=== PATIENT | male | born 1985 | race Caucasian/White ===

== ENCOUNTER 2022-10-27 13:40 | Observation (INO) | payer MEDICARE, MEDICAID, SELFPAY ==
[2022-10-27] VITALS (7 sets, daily range): BP systolic 105–133; BP diastolic 73–90; PULSE 112–118; RESP 12–16; TEMP 36.3–36.8; O2SAT 93–95; BMI 28.0
--- NOTE | ~2022-10-27 | CT_ITS ---
EXAMINATION: CT brain wo con INDICATION: Facial numbness, history of traumatic brain injury COMPARISON: None TECHNIQUE: Standard unenhanced head CT. The dose-length product (DLP) was 681.00 mGy-cm. The mA was a djusted according to patient size. Iterative reconstruction technique was employed. FINDINGS: There is no intracranial hemorrhage, acute infarction, or abnormal mass lesion. There are l arge areas of encephalomalacia involving the left frontal lobe, the right frontal lobe, in the right temporal lobe. There is also mild encephalomalacia in the left cerebellum. The ventricles are normal. There is no abnormal mass effect or midline shift. The basal cisterns are patent. The orbits are nor mal. The paranasal sinuses, mastoids and calvarium are normal. IMPRESSION: 1. Areas of prior infarction without acute intracranial abnormality. Reviewed, dictated and finalized at location B. DESIGNER
--- NOTE | ~2022-10-27 | MR_ITS ---
EXAMINATION: MR cervical spine wo/w con DATE: 10/29/2022 17:01 INDICATION: Right upper extremity paresthesia TECHNIQUE: Magnetic resonance imaging (MRI) of the cervical spine was performed without and with 20 m L Multihance intravenous contrast. Sequences included sagittal T2-weighted FSE, sagittal T2-weighted FS FSE, sagittal T1-weighted FSE, axial T2-weighted FSE, and axial T1-weighted SE. Postcontrast seque nces included sagittal T1-weighted FS FSE, and axial T1-weighted FS SE. COMPARISON: None FINDINGS: Evaluation to definitely limited by some degree of motion artifact on all sequences. This affects danie shea the assessment of the facet and uncovertebral joints, neural foramina and cord signal. 10 degr ee cervicothoracic dextrocurvature. Sagittal alignment is normal. Vertebral body heights are normal. Bone marrow signal intensity is normal. Mild disc height loss at C4-C5. Disc bulges and/or uncovert ebral hypertrophic osteophytes which appear to result in some degree of neural foraminal stenosis on the left at C3-C4 and C4-C5 as well as mild central canal stenosis at C3-C4 and minimal at C4-C5. The re also appears to be mild neural foraminal stenosis resulting from facet osteoarthritis on the left at C6-C7 and bilaterally at C7-T1. No abnormally enhancing cord lesions identified. IMPRESSION: 1. Significantly limited evaluation due to motion artifact on all sequences which affects primarily t he assessment of the facet and uncovertebral joints, neural foramina and cord signal. Further assessm ent for neural from stenosis with recommend either repeat imaging when patient is able to remain more still or obtaining cervical spine CT 2. Mild cervical spondylosis with no evident abnormally enhancing cord lesions. Reviewed, dictated and finalized at location A. TOLOGY TECHNICIAN IMPRESSION: 1. Significantly limited evaluation due to motion artifact on all sequences whi ch affects primarily the assessment of the facet and uncovertebral joints, neur al foramina and cord signal. Further assessment for neural from stenosis with r ecommend either repeat imaging when patient is able to remain more still or obt aining cervical spine CT 2. Mild cervical spondylosis with no evident abnormally enhancing cord lesions.
--- NOTE | ~2022-10-27 | MR_ITS ---
EXAMINATION: MR thoracic spine wo/w con DATE: 10/29/2022 17:01 INDICATION: Right upper extremity and bilateral lower extremity weakness TECHNIQUE: Magnetic resonance imaging (MRI) of the thoracic spine was performed without and with 20 m L Multihance intravenous contrast. Sagittal localizer T1-weighted FSE of the cervicothoracic spine wa s obtained. Sequences included sagittal T2-weighted FSE, sagittal T2-weighted FS FSE, sagittal T1-fela ghted FSE and axial T1-weighted SE. Postcontrast sequences included axial T2-weighted FSE, sagittal T 1-weighted FS FSE, and axial T1-weighted FS SE. COMPARISON: None FINDINGS: There is motion artifact which mild to moderately limits assessment of the lower cervical and upper t horacic spine. 15 degree thoracic dextroscoliosis. Sagittal alignment is normal. Chronic endplate co mpression fractures with 10-20% vertebral body height loss centrally at T9 and at the right anterior aspect of T12, both with mild underlying fibrofatty degenerative endplate changes. Remaining vertebra l body heights heights are normal. T1 hyperintense hemangiomas at the left transverse process of T6. Marrow signal is otherwise unremarkable. Moderate disc height loss [id number] with left-sided predo minance atC2. ClassificationT5-T6, T6-T7 and T7-T8. Mild disc height loss at and T2-T3, T4-T5 and T9- T10. Right with left paracentral disc protrusion at T2-T3. Small right paracentral disc protrusion at T3-T4. Small left paracentral disc protrusion at T6-T7. Small central to left paracentral disc protr usion at T7-T8. Annular fissure and small left paracentral disc protrusion at T9-T10. These each appe ar to slightly flatten the immediately adjacent ventral surfaces of the cord but without significant central canal stenosis. Minimal diffuse disc bulge at T11-T12 without neural foraminal stenosis. No s ignificant facet osteoarthritis in the mid to lower thoracic spine. There is likely some facet osteoa rthritis at a few levels in the upper thoracic spine which may result in mild neural foraminal stenos is however assessment is limited by motion at these levels. There is normal spinal cord signal. No ab normally enhancing cord lesions. Small region of consolidation in the dependent bilateral lower lobes which could represent atelectasis or pneumonia. IMPRESSION: 1. 15 degrees thoracic dextro scoliosis with mild spondylosis. 2. There is motion affecting which mild to moderately limits assessment of the upper thoracic spine. Reviewed, dictated and finalized at location A. CONTROL FIELD REPRESENTATIVE
--- NOTE | ~2022-10-27 | MR_ITS ---
EXAMINATION: MR lumbar spine wo/w con DATE: 10/29/2022 17:01 INDICATION: Bilateral lower extremity weakness TECHNIQUE: Magnetic resonance imaging (MRI) of the lumbar spine was performed without and with 20 mL Multihance intravenous contrast. Sequences included sagittal T2-weighted FSE, sagittal T2-weighted FS FSE, and sagittal and axial T1-weighted FSE. Postcontrast sequences included axial T2-weighted FSE, sagittal T1-weighted FSE, and axial and sagittal T1-weighted FS FSE. COMPARISON: None FINDINGS: Alignment is normal. Minimal left anterior vertebral body height loss at T11 with mild underlying fib rofatty degenerative endplate changes. Remaining vertebral body heights are normal. T1 and T2 hyperin tense hemangiomas at L2 and S1. Otherwise normal marrow signal. Moderate disc height loss at T10-T11 with mild disc desiccation without significant disc height loss at L5-S1. The conus medullaris termin ates at L2. There is normal signal in the caudal spinal cord. No abnormally enhancing lesions identif ied. Paravertebral soft tissues are unremarkable. The following disc levels are specifically discusse d: T12: Disc is minimally bulging. There is mild bilateral facet osteoarthritis. There is no neural fora yenifer stenosis. There is no central canal stenosis. T12-L1: The disc does not extend beyond the endplate margin. There is mild right and minimal left fac et joint osteoarthritis. There is no neural foraminal stenosis. There is no central canal stenosis. L1-L2: The disc does not extend beyond the endplate margin. There is mild bilateral facet joint osteo arthritis. There is no neural foraminal stenosis. There is no central canal stenosis. L2-L3: The disc does not extend beyond the endplate margin. There is mild bilateral facet joint osteo arthritis. There is minimal bilateral neural foraminal stenosis. There is no central canal stenosis. L3-L4: The disc does not extend beyond the endplate margin. There is mild bilateral facet joint osteo arthritis. There is mild bilateral neural foraminal stenosis. There is no central canal stenosis. L4-L5: Disc is minimally bulging at the foraminal zones. There is mild left and mild to moderate righ t facet joint osteoarthritis. There is mild left and mild to moderate right neural foraminal stenosis . There is no central canal stenosis. L5-S1: Annular fissure and small left foraminal zone disc protrusion. There is mild right and minimal left facet joint osteoarthritis. There is mild bilateral neural foraminal stenosis. There is no cent ral canal stenosis. IMPRESSION: 1. Minimal to mild lumbar spondylosis. Reviewed, dictated and finalized at location A. LIARY OPERATOR
--- NOTE | ~2022-10-27 | CT_ITS ---
EXAMINATION: CT cervical spine wo con DATE: 11/01/2022 10:55 INDICATION: Numbness. Right upper extremity paresthesias. TECHNIQUE: Computed tomography (CT) of the cervical spine was performed without intravenous contrast. The dose-length product was 480 mGy-cm. Automated exposure control and iterative reconstruction tech nique were employed. COMPARISON: MRI dated 10/29/2022 FINDINGS: There is reversal of cervical lordosis. Vertebral body heights are maintained. Cranioverteb ral junction is normal. No evidence for perched facet. Odontoid process is normal. Lateral masses are normally aligned. There is mild uncinate degenerative change at C2-3 and C3-4. There is mild facet h ypertrophy at C4-5. Lung apices are normal. No acute fracture or traumatic malalignment. Mild levocur vature of the cervical spine. No significant paraspinal soft tissue abnormality. There is mild right neural foraminal narrowing at C6-7 and C7-T1 secondary to facet hypertrophy. No significant central c anal stenosis. No significant disc bulges or focal herniations are identified. IMPRESSION: 1. Mild cervical spondylosis with mild right neural foraminal narrowing at C6-7 and C7-T1. Reviewed, dictated and finalized at location A. TING TEACHER
--- NOTE | ~2022-10-27 | MR_ITS ---
EXAMINATION: MR brain/brain stem wo/w con DATE: 10/29/2022 17:01 INDICATION: Right upper extremity and and facial paresthesias and bilateral lower extremity venous. TECHNIQUE: Magnetic resonance imaging (MRI) of the brain and brainstem was performed without and with 20 mL Multihance intravenous contrast. Sequences included sagittal and axial T1-weighted SE, axial d iffusion-weighted FS SE, axial 3D SWAN, axial T2-weighted FLAIR, and axial T2-weighted FSE. Postcontr ast axial and coronal T1-weighted SE was obtained. Apparent diffusion coefficient (ADC) maps were cre ated. COMPARISON: Head CT dated 10/27/2022 FINDINGS: There are no areas of restricted diffusion to suggest acute infarction. No intracranial hemorrhage or abnormal intracranial mass lesion. Large regions of encephalomalacia along the inferior aspect of th e bilateral anterior frontal lobes, right temporal and anterior left temporal lobes with distribution favoring sequela of traumatic brain injury over infarct. There is associated ex vacuo dilation of th e temporal horn of the right lateral ventricle. There is asymmetric diffuse mild atrophy of the left cerebellar hemisphere relative to the right which could be related to diaschisis related to the previ ously noted regions of encephalomalacia. There are no intraparenchymal signal abnormalities seen on t he other pulse sequences. There are no abnormal extra-axial fluid collections. Flow voids are seen i n the cerebral arteries on the T2-weighted sequences consistent with their expected patency. Mild muc operiosteal thickening the left frontal and bilateral ethmoid sinuses. Visualized orbits and soft tis sues are unremarkable. There are no areas of abnormal enhancement on the post contrast images. IMPRESSION: 1. No acute intracranial process. 2. Large regions of encephalomalacia at the inferior bilateral anterior frontal lobes and the right t emporal lobe and anterior left temporal lobe with distribution favoring extremity brain injury over i nfarct. 3. 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 Reviewed, dictated and finalized at location A. F LIBRARIAN EXTENSION DEPARTMENT IMPRESSION: 1. No acute intracranial process. 2. Large regions of encephalomalacia at the inferior bilateral anterior frontal lobes and the right temporal lobe and anterior left temporal lobe with distrib ution favoring extremity brain injury over infarct. 3. 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
--- NOTE | ~2022-10-27 | XR_ITS ---
EXAMINATION: XR chest 1V portable DATE: 10/29/2022 13:02 INDICATION: Patent foramen ovale. TECHNIQUE: A single frontal view of the chest was obtained. COMPARISON: None. FINDINGS: The patient is rotated to his left. Calcified left lung nodules are consistent with old gra nulomatous disease. There is mild atelectasis bilaterally. No pleural effusion or pneumothorax. The h eart size is normal. Median sternotomy wires are noted. IMPRESSION: 1. Mild atelectasis bilaterally. Reviewed, dictated and finalized at location A. R PRESS OPERATOR
--- NOTE | 2022-10-27 14:02 | ED.GENADULT ---
HPI - General Adult General Chief complaint: Unspecified Stated complaint: R HAND NUMBNESS [id number] Time Seen by Provider: 10/27/22 14:00 History of Present Illness HPI narrative: 37-year-old male history of TBI, bacterial meningitis, spondylosis of the cervical lumbar spines presents to the emergency room for evaluation of diffuse facial numbness and tingling for 1 month and paresthesias in his right arm. Patient states that he chronically experiences paresthesias in his arms and his legs due to his spondylosis, but has noticed the paresthesia moving proximally up into his arm over the past couple of days. Patient presents from [facility] where he is in rehab due to frequent falls. States a month ago he began experiencing facial numbness and tingling and went to [facility], where he was found to have a urinary tract infection. He states since then he has developed increased weakness and was sent to [facility] for rehab to rebuild his strength. Patient reports chronic left sided weakness secondary to his bacterial meningitis. Related Data Allergies Allergy/AdvReac Type Severity Reaction Status Date / Time allopurinol Allergy Weakness Verified 10/27/22 15:54 Review of Systems Review of Systems: CONSTITUTIONAL: Denies fever, chills, or sweats. EYES: Denies visual changes, redness, or discharge. ENT: Denies rhinorrhea, congestion, sore throat, or otalgia. CARDIOVASCULAR: Denies chest pain, palpitations, or edema. RESPIRATORY: Denies cough or dyspnea. GASTROINTESTINAL: Denies abdominal pain, nausea, vomiting, or diarrhea. GENITOURINARY: Denies dysuria or hematuria. SKIN: Denies rash or itching. MUSCULOSKELETAL: Denies back pain, joint pain, or myalgia. NEUROLOGIC: Facial numbness, paresthesias to right arm PSYCHIATRIC: Denies anxiety or depression. Exam Narrative: GENERAL: Chronically ill-appearing, well-nourished, and in no acute distress. HEAD: Normocephalic, atraumatic. EYES: Conjunctivae normal, PERRLA and EOMI. CHEST: Clear to auscultation. No respiratory distress. No wheezes rales or rhonchi. HEART: Regular rate and rhythm. No murmur heard. Normal peripheral pulses. ABDOMEN: Soft, nontender, nondistended, normal active bowel sounds. BACK: No midline cervical/thoracic/lumbar tenderness EXTREMITIES: Normal range of motion. No edema. No clubbing or cyanosis SKIN: Warm, dry, no rash. No noted wounds NEURO: Left-sided weakness. Alert and oriented x3. MAEW. CN's II-XI intact bilaterally. Slurring of speech PSYCH: Cooperative. Normal mood and affect. Course Vital Signs Vital signs: Vital Signs Temperature 36.3 C L 10/27/22 13:41 Pulse Rate 113 H 10/27/22 13:41 Respiratory Rate 14 10/27/22 13:41 Blood Pressure 133/90 10/27/22 13:41 Pulse Oximetry 94 10/27/22 13:41 Temperature 36.3 C L 10/27/22 13:41 Pulse Rate 112 H 10/27/22 17:56 Respiratory Rate 12 10/27/22 17:56 Blood Pressure 107/74 10/27/22 17:56 Pulse Oximetry 95 10/27/22 17:56 Medical Decision Making Vital Signs Vital Signs: Vital Signs Temperature 36.3 C L 10/27/22 13:41 Pulse Rate 113 H 10/27/22 13:41 Respiratory Rate 14 10/27/22 13:41 Blood Pressure 133/90 10/27/22 13:41 Pulse Oximetry 94 10/27/22 13:41 Temperature 36.3 C L 10/27/22 13:41 Pulse Rate 112 H 10/27/22 17:56 Respiratory Rate 12 10/27/22 17:56 Blood Pressure 107/74 10/27/22 17:56 Pulse Oximetry 95 10/27/22 17:56 Lab Data 10/27/22 14:40 10/27/22 14:40 Labs: Lab Results 10/27/22 10/27/22 10/27/22 Range/Units 14:40 14:40 15:36 WBC 11.7 H (4.5-10.0) K/mm3 RBC 4.42 L (4.6-6.20) M/mm3 Hgb 15.8 (14.0-18.0) g/dL Hct 46.5 (42.0-52.0) % MCV 105.2 H (80-100) fl MCH 35.7 H (26-34) pg MCHC 34.0 (32-36) g/dl RDW 12.9 (11.5-14.5) % Plt Count 398 H (150-375) k/mm3 MPV 11.0 H (7.4-10.4) fl Immature Gran % (Auto) 0.4 (0-0.5) %
[2022-10-27 14:55] LABS: Basophils Absolute Auto 0.1 K/mm3 (0.0-0.1); Basophils Percent Auto 0.5 % (0.2-1.2); Eosinophils Absolute Auto 0.1 K/mm3 (0-0.3); Eosinophils Percent Auto 0.9 % (0-4.4); Hematocrit 46.5 % (42.0-52.0); Hemoglobin 15.8 g/dL (14.0-18.0); Immature Granulocyte Absolute 0.05 K/mm3 (0.00-0.031); Immature Granulocyte Percent A 0.4 % (0-0.5); Lymphocytes Absolute Auto 1.74 K/mm3 (0.9-3.2); Lymphocytes Percent Auto 14.9 % (18.3-44.2); Mean Corpuscular Hemoglobin 35.7 pg (26-34); Mean Corpuscular Volume 105.2 fl (80-100); Monocytes Absolute Auto 0.9 K/mm3 (0.1-0.6); Monocytes Percent Auto 7.3 % (2.6-8.5); Neutrophils Absolute Auto 8.9 K/mm3 (1.3-6.7); Platelet Count Result 398 k/mm3 (150-375); Red Blood Count 4.42 M/mm3 (4.6-6.20); Red Cell Distribution Width 12.9 % (11.5-14.5); White Blood Count 11.7 K/mm3 (4.5-10.0)
[2022-10-27 15:04] LABS: Chloride 100 mmol/L (98-107)
[2022-10-27 15:17] LABS: Alanine Aminotransferase 52 U/L (6-50); Albumin Level 3.9 g/dL (3.5-5.1); Alkaline Phosphatase 119 U/L (38-126); Anion Gap 6 mmol/L (8-16); Aspartate Amino Transferase 44 U/L (17-59); Bilirubin,Total 0.5 mg/dL (0.2-1.3); Blood Urea Nitrogen 18 mg/dL (9-20); Calcium 9.1 mg/dL (8.4-10.2); Carbon Dioxide 27 mmol/L (22-30); Estimated CRCL calculation 185 ml/min; Estimated Glomerular Filt Rate > 60; Glucose 119 mg/dL (65-110); Macrocytosis 1+ (NORMAL); Platelet Estimate Increased (Adequate); Potassium 4.5 mmol/L (3.4-5.0); Schistocytes None Seen (NORMAL); Sodium 133 mmol/L (137-145); Stomatocytes 1+ (NORMAL)
[2022-10-27 15:43] LABS: Appearance Urine Clear (Clear); Bilirubin Urine Negative (Negative); Blood Urine Negative (Negative); Color Urine Yellow (Yellow); Glucose Urine UA Negative (Negative); Ketones Urine Negative (Negative); Leukocyte Esterase Ur Negative LEU/UL (Negative); Nitrate Urine Negative (Negative); Protein Urine 2+ mg/dL (Negative); Specific Grav Ur 1.025 (1.001-1.035); Urobilinogen Urine 0.2 mg/dL (<2.0); pH Urine 5.5 (5.0-9.0)
[2022-10-27 15:56] LABS: Mucus Urine Rare /lpf; RBC Urine 0-2 /hpf (0-2); Squamous Epithelial Cell Urine Occasional /hpf (Few); WBC Urine 0-3 /hpf
[2022-10-27 16:00] LABS: Add Urine Microscopic? YES
--- NOTE | 2022-10-27 16:30 | PM.IMHP ---
H&P: HPI History of Present Illness Date/Time: 10/27/22 16:30 Chief Complaint: Numbness in the right arm and face. Narrative: This is a pleasant 37-year-old male with history of traumatic brain injury, bacterial meningitis, seizures, hypertension, GERD, anxiety, PTSD, and chronic pain who presented to the emergency department via EMS from [facility] for evaluation of numbness in the right arm and face. He has left-sided coordination deficits, reportedly stemming from bacterial meningitis in 2012, and he has occasional paresthesias and neuropathy symptoms in both legs which she attributes to spondylosis. In the last month or so he had developed paresthesias in the right hand which more recently has started to travel up the right arm and into the face. In fact he reports that his entire face and his tongue are numb and he has noticed that his speech has been slurred though his swallowing is intact. He was hospitalized at [facility] within the last month though he reports that he did not have any significant workup to evaluate the paresthesias. He was instead treated for urinary tract infection. He was discharged to [facility] for rehab due to increasing weakness. It is my understanding that he was referred to a neurologist but could not get in for 6 months and he came in today for evaluation. Blood pressure was stable on arrival. Brain CT showed large areas of encephalomalacia involving the left frontal lobe, right frontal lobe, and right temporal lobe and mild encephalomalacia in the left cerebellum without acute findings. Labs were significant for a WBC of 11.7, MCV 105.2, sodium 133. EKG showed sinus tachycardia which he states is not necessarily unusual for him. He is being admitted in this setting for further observation and neurology consultation. He denies vertigo, acute auditory and visual changes, facial droop, and difficulty swallowing. He has not had chest or pleuritic pain, palpitations, or shortness of breath. No fever, chills, sweats. No recent cold or flu symptoms. Review of Systems Review of Systems: Twelve systems were reviewed and are negative except for as per HPI. [facility] Past Medical History Medical History (Updated 10/27/22 @ 21:45 by Michelle Wolfe PA-C) Anxiety Bacterial meningitis (2012) Chronic pain syndrome Congenital heart disorder Gastroesophageal reflux disease Hypercholesterolemia Hypertension Posttraumatic stress disorder Seizure Traumatic brain injury (2004) Surgical History Surgical History (Updated 10/27/22 @ 21:41 by Michelle Wolfe PA-C) History of heart surgery Repair of hole in heart. History of tonsillectomy History of wisdom tooth extraction Family History Family History (Updated 10/27/22 @ 21:41 by Michelle Wolfe PA-C) Other Family history unknown Social History Social History (Updated 10/27/22 @ 21:42 by Michelle Wolfe PA-C) Social History: Surrogate decision maker: Patrick Mendoza, brother. Code status: Full code. Smoking status: Never smoker Alcohol intake: current Drinks per week: 1 Substance use: never Lack of Transportation: No Lack of Food: Never True Current Housing: I Have Housing Concerned About Future Housing: No Difficulty Paying Gas/Electric Bills: No Difficulty Paying for Meds: No Currently Unemployed: No Education: Decline to Answer Difficulty w/ Childcare or Family Care: No Additional living arrangements comments: The patient was living in his own apartment prior to his recent hospitalization. Currently at [facility] for rehab. Spiritual care concerns: No Meds Home Medications and Allergies Home Medications Medication Instructions Recorded Confirmed Type alprazolam 0.5 mg tablet 0.5 mg PO HS 10/27/22 10/27/22 History amlodipine 10 mg tablet 10 mg PO DAILY 10/27/22 10/27/22 History aspirin 81 mg chewable tablet 81 mg PO DAILY 10/27/22 10/27/22 History carvedilol 3.125 mg table
--- NOTE | 2022-10-27 16:50 | ECG_ITS ---
Measurements Intervals [place] Rate: 108 P: 42 CO: 153 QRS: 11 QRSD: 104 T: 58 QT: 332 QTc: 447 Interpretive Statements SINUS TACHYCARDIA POSSIBLE LEFT ATRIAL ENLARGEMENT INCOMPLETE RIGHT BUNDLE BRANCH BLOCK BASELINE ARTIFACT- I, III, AVR, AVL ABNORMAL ECG NO PREVIOUS ECG AVAILABLE FOR COMPARISON Electronically Signed On 10-27-2022 20:08:47 CHIEF METEOROLOGIST by Christopher Browning D.O.
[2022-10-27 16:56] LABS: Influenza A QL RT-PCR Negative (Negative); Influenza B QL RT-PCR Negative (Negative); SARS-CoV-2 RNA PCR Negative
[2022-10-27] MEDS: SODIUM CHLORIDE 0.9% IV 1,000 ML 999 ML IV CONT (17:29)
[2022-10-27] MEDS: HYDROmorphone HCL INJ (*CRX) 1 MG/ML SYR IV PUSH (17:29)
--- NOTE | 2022-10-27 18:11 | ADMGEN ---
This patient, Haile Mendoza, was admitted to [facility] S[facility] Room 324-02. Patient/family oriented to hospital policies and general routines including ID bracelet, bed and alarms, visiting hours, pain management, procedures, bathroom and other care routines, personal items, smoking policy, room service/diet, and visiting hours. Information on how to activate the Rapid Response Team has been discussed. Patient/Family are encouraged to report perceived risks to care and to ask questions if they do not understand what they are told or what they should do.
[2022-10-27] MEDS: SODIUM CHLORIDE 0.9% IV 1,000 ML 125 ML IV CONT (21:03)
--- NOTE | 2022-10-27 23:23 | PC.NURSE ---
pt inquiring about medication for HS informed CONY Wolfe to review and restart medication as appropriate.
--- NOTE | 2022-10-27 23:29 | PC.NURSE ---
medication started per CONY Wolfe
[2022-10-28] VITALS (8 sets, daily range): BP systolic 112–127; BP diastolic 77–88; PULSE 93–112; RESP 12–20; TEMP 36.1–36.3; O2SAT 95–97
[2022-10-28] MEDS: HYDROcodone/acetaminophen (*CRX) 5-325 MG TABLET 1 TAB PO ×3 (00:12→16:30)
[2022-10-28] MEDS: levETIRAcetam 500 MG TABLET 1000 MG PO ×3 (00:13→20:44)
[2022-10-28] MEDS: traZODone HCL 50 MG TABLET 100 MG PO ×2 (00:13→20:44)
[2022-10-28] MEDS: ALPRAZolam (*CRX) 0.5 MG TABLET PO ×2 (00:13→20:44)
[2022-10-28] MEDS: carvediloL 3.125 MG TABLET PO ×3 (00:13→20:44)
[2022-10-28] MEDS: GABAPENTIN 300 MG CAPSULE PO ×4 (00:14→17:43)
[2022-10-28] MEDS: SODIUM CHLORIDE 0.9% IV 1,000 ML 125 ML IV CONT ×4 (05:22→22:27)
[2022-10-28 06:24] LABS: Hematocrit 41.4 % (42.0-52.0); Hemoglobin 14.3 g/dL (14.0-18.0); Mean Corpuscular HGB Conc 34.5 g/dl (32-36); Mean Corpuscular Hemoglobin 35.5 pg (26-34); Mean Corpuscular Volume 102.7 fl (80-100); Mean Platelet Volume 10.8 fl (7.4-10.4); Platelet Count Result 266 k/mm3 (150-375); Red Blood Count 4.03 M/mm3 (4.6-6.20); Red Cell Distribution Width 12.7 % (11.5-14.5); White Blood Count 6.3 K/mm3 (4.5-10.0)
[2022-10-28 06:39] LABS: Alanine Aminotransferase 47 U/L (6-50); Albumin Level 3.5 g/dL (3.5-5.1); Alkaline Phosphatase 97 U/L (38-126); Anion Gap 6 mmol/L (8-16); Aspartate Amino Transferase 36 U/L (17-59); Bilirubin,Total 0.6 mg/dL (0.2-1.3); Blood Urea Nitrogen 13 mg/dL (9-20); Calcium 8.6 mg/dL (8.4-10.2); Carbon Dioxide 26 mmol/L (22-30); Chloride 105 mmol/L (98-107); Creatine Kinase 53 U/L (55-170); Estimated CRCL calculation 224 ml/min; Estimated Glomerular Filt Rate > 60; Glucose 93 mg/dL (65-110); Magnesium 1.9 mg/dL (1.6-2.3); Potassium 4.6 mmol/L (3.4-5.0); Sodium 137 mmol/L (137-145)
[2022-10-28 06:48] LABS: Iron 75 ug/dL (49-181)
[2022-10-28 06:58] LABS: Percent Iron Saturation 26 % (20-50)
[2022-10-28 07:39] LABS: Folic Acid 7.4 ng/mL (2.76->20)
[2022-10-28] MEDS: MAGNESIUM OXIDE 400 MG TABLET 800 MG PO ×2 (09:27→17:43)
[2022-10-28] MEDS: ASPIRIN 81 MG CHEWABLE TABLET PO (09:27)
[2022-10-28] MEDS: amLODIPine BESYLATE 5 MG TABLET 10 MG PO (09:27)
[2022-10-28] MEDS: PANTOPRAZOLE 40 MG TABLET PO (09:28)
[2022-10-28] MEDS: FOLIC ACID 1 MG TABLET PO (09:28)
[2022-10-28] MEDS: SERTRALINE HCL 50 MG TABLET 100 MG PO (09:28)
[2022-10-28] MEDS: ENALAPRIL MALEATE 10 MG TABLET 20 MG PO (09:28)
--- NOTE | 2022-10-28 10:00 | P.PNIM_ITS ---
Progress Note: A&P Assessment and Plan (1) Facial paresthesia: Code(s): R20.2 - Paresthesia of skin Status: Acute Assessment and Plan: * ongoing issue for upwards of a month * Attempted to make an appointment with neurologist however was unable to get in * Neuro consulted * MRI of brain and spine ordered * Echo ordered * Brain ct noted significant old findings. * Could be secondary to spinal defect (2) Paresthesia of right arm: Code(s): R20.2 - Paresthesia of skin Status: Acute Assessment and Plan: * See above (3) Slurred speech: Code(s): R47.81 - Slurred speech Status: Acute Assessment and Plan: * Seems to be stable * Probably related to tongue numbness * Awaiting MRI * CT head does show old findings (4) Elevated MCV: Code(s): R71.8 - Other abnormality of red blood cells Status: Acute Assessment and Plan: * Anemia labs stable * Continue to trend H/H * Current H/H 14.3/41.9 (5) Tachycardia: Code(s): R00.0 - Tachycardia, unspecified Status: Acute Assessment and Plan: * HR is in the low 100s * Continue to trend HR * Carvedilol continued * Most likely chronic (6) Hypertension: Code(s): I10 - Essential (primary) hypertension Status: Acute Assessment and Plan: * BP stable currently 121/84 * Continue home amlodipine, enalapril, carvedilol * Trend BP * Adjust therapy as indicated (7) Chronic pain syndrome: Code(s): G89.4 - Chronic pain syndrome Status: Acute Assessment and Plan: * Continue home pain [place] Q8H * Trend pain score * Adjust therapy as indicated (8) Anxiety: Code(s): F41.9 - Anxiety disorder, unspecified Status: Acute Assessment and Plan: * Stable * Continue home Xanax (9) Seizure: Code(s): R56.9 - Unspecified convulsions Status: Acute Assessment and Plan: * No reported recent siezures * Continue keppra 1000mg Q12H * Seizure precautions * Neuro on board * Adjust therapy as indicated Time Spent With Patient Time with patient: Greater than 35 minutes Subjective Date/time seen: 10/28/22 10:00 Interval history: 10/28/22 1000 patient is lying in bed. Patient stated that he still can not feel his face, tongue, nose, lips. He denies any current numbness to his upper extremities. He did state that he was able to eat. He is concerned about his speech is he stated that he feels like his tongue is very big and swollen however it is numb and he can not move it around well enough to annunciate his words. He denies any chest pain, shortness of breath, nausea, vomiting, diarrhea, constipation, weakness or fatigue. 10/27/22 16:30 This is a pleasant 37-year-old male with history of traumatic brain injury, bacterial meningitis, seizures, hypertension, GERD, anxiety, PTSD, and chronic pain who presented to the emergency department via EMS from [facility] for evaluation of numbness in the right arm and face. He has left-sided coordination deficits, reportedly stemming from bacterial meningitis in 2012, and he has occasional paresth
--- NOTE | 2022-10-28 10:00 | PM.IMPN ---
Progress Note: A&P Assessment and Plan (1) Facial paresthesia: Code(s): R20.2 - Paresthesia of skin Status: Acute Assessment and Plan: ongoing issue for upwards of a month Attempted to make an appointment with neurologist however was unable to get in Neuro consulted MRI of brain and spine ordered Echo ordered Brain ct noted significant old findings. Could be secondary to spinal defect (2) Paresthesia of right arm: Code(s): R20.2 - Paresthesia of skin Status: Acute Assessment and Plan: See above (3) Slurred speech: Code(s): R47.81 - Slurred speech Status: Acute Assessment and Plan: Seems to be stable Probably related to tongue numbness Awaiting MRI CT head does show old findings (4) Elevated MCV: Code(s): R71.8 - Other abnormality of red blood cells Status: Acute Assessment and Plan: Anemia labs stable Continue to trend H/H Current H/H 14.3/41.9 (5) Tachycardia: Code(s): R00.0 - Tachycardia, unspecified Status: Acute Assessment and Plan: HR is in the low 100s Continue to trend HR Carvedilol continued Most likely chronic (6) Hypertension: Code(s): I10 - Essential (primary) hypertension Status: Acute Assessment and Plan: BP stable currently 121/84 Continue home amlodipine, enalapril, carvedilol Trend BP Adjust therapy as indicated (7) Chronic pain syndrome: Code(s): G89.4 - Chronic pain syndrome Status: Acute Assessment and Plan: Continue home pain [place] Q8H Trend pain score Adjust therapy as indicated (8) Anxiety: Code(s): F41.9 - Anxiety disorder, unspecified Status: Acute Assessment and Plan: Stable Continue home Xanax (9) Seizure: Code(s): R56.9 - Unspecified convulsions Status: Acute Assessment and Plan: No reported recent siezures Continue keppra 1000mg Q12H Seizure precautions Neuro on board Adjust therapy as indicated Time Spent With Patient Time with patient: Greater than 35 minutes Subjective Date/time seen: 10/28/22 10:00 Interval history: 10/28/22 1000 patient is lying in bed. Patient stated that he still can not feel his face, tongue, nose, lips. He denies any current numbness to his upper extremities. He did state that he was able to eat. He is concerned about his speech is he stated that he feels like his tongue is very big and swollen however it is numb and he can not move it around well enough to annunciate his words. He denies any chest pain, shortness of breath, nausea, vomiting, diarrhea, constipation, weakness or fatigue. 10/27/22 16:30 This is a pleasant 37-year-old male with history of traumatic brain injury, bacterial meningitis, seizures, hypertension, GERD, anxiety, PTSD, and chronic pain who presented to the emergency department via EMS from [facility] for evaluation of numbness in the right arm and face. He has left-sided coordination deficits, reportedly stemming from bacterial meningitis in 2012, and he has occasional paresthesias and neuropathy symptoms in both legs which she attributes to spondylosis. In the last month or so he had developed paresthesias in the right hand which more recently has started to travel up the right arm and into the face. In fact he reports that his entire face and his tongue are numb and he has noticed that his speech has been slurred though his swallowing is intact. He was hospitalized at [facility] within the last month though he reports that he did not have any significant workup to evaluate the paresthesias.? He was instead treated for urinary tract infection. He was discharged to [facility] for rehab due to increasing weakness. It is my understanding that he was referred to a neur
--- NOTE | 2022-10-28 11:42 | WPDNEURCNPN ---
Assessment and Plan Assessment and plan (1) Slurred speech: Code(s): R47.81 - Slurred speech Status: Acute (2) Paresthesia of right arm: Code(s): R20.2 - Paresthesia of skin Status: Acute (3) Facial paresthesia: Code(s): R20.2 - Paresthesia of skin Status: Acute (4) Seizure: Code(s): R56.9 - Unspecified convulsions Status: Acute (5) Anxiety: Code(s): F41.9 - Anxiety disorder, unspecified Status: Acute Plan 1 facial paresthesia with paresthesia of right upper extremity 2 difficulties in speech with so-called dysarthria 3 chronic pain syndrome by history with anxiety and depression 4 posttraumatic seizure disorder. Considering his offices of the new onset of symptomatology and considering that as CT scan is abnormal MRI of the brain will be obtained in addition to MRI of cervical spine if any coincidental aggravated pathology has occurred. He will definitely benefit from the EMG and nerve conduction study of the upper and lower extremities for the long-term explanation, even though the history of new onset but he will not need spinal fluid studies until the MRI of the brain and cervical spines are obtained, is unlikely that he has Guillain-Valley syndrome Consult date: 10/28/22 HPI: Haile Mendoza is a 37 year old maleAdmitted to the hospital through the emergency room for the complaints of right-handed numbness of 4 weeks duration in addition to the history of traumatic brain injury, is spondylosis cervical and lumbar spines, patient reported to the ER personnel that he generally experiences paresthesia in his upper extremities and lower extremities because of the underlying spondylosis of the spine but recently the paresthesias have been moving proximally up into his upper extremity over the last couple of days he has been in the [facility] further rehab due to frequent helps and a month ago he was experiencing facial numbness and tingling for which he went to the [facility] was found to have only urinary tract infection but since then he has developed increasing weakness and was sent to the [facility] to the rehab. He is allergic to allopurinol. Initial evaluation in the emergency room revealed him to have normal vital signs, normal CBC and BMP, normal UA, and negative screening for the influenza AB and stars, EKG was negative for atrial fibrillation but with possible left atrial enlargement and incomplete right bundle branch block, patient does have ongoing history of chronic pain syndrome with GERD, hypercholesterolemia, hypertension, post traumatic stress disorder, traumatic brain injury, and seizure disorder, he is a never smoker, current alcohol intake only 1 drink per week, his medications included alprazolam 0.5 mg at night aspirin 81 mg daily carvedilol 3.125 mg twice a day gabapentin 300 mg 3 times a day hydrocodone 5 1 tablet every 8 hours levetiracetam 1000 mg q.12 hours sertraline 100 mg daily and trazodone 100 mg at night, Review of Systems Review of Systems: All systems reviewed & are unremarkable except as noted in HPI and below PMFSH Past Medical History Medical History (Updated 10/27/22 @ 21:45 by Michelle Wolfe PA-C) Anxiety Bacterial meningitis (2012) Chronic pain syndrome Congenital heart disorder Gastroesophageal reflux disease Hypercholesterolemia Hypertension Posttraumatic stress disorder Seizure Traumatic brain injury (2004) Surgical History Surgical History (Updated 10/27/22 @ 21:41 by Michelle Wolfe PA-C) History of heart surgery Repair of hole in heart. History of tonsillectomy History of wisdom tooth extraction Family History Family History (Updated 10/27/22 @ 21:41 by Michelle Wolfe PA-C) Other Family history unknown Social History Social History (Updated 10/27/22 @ 21:42 by Michelle Wolfe PA-C) Social History: Surrogate decision maker: Patrcik Mendoza, brother. Code status: Cori
--- NOTE | 2022-10-28 13:05 | PCSTNOTE ---
Bedside communication evaluation: Overall intelligibility is slightly reduced due to impaired lingual sensation and control. Conversational speech production intelligibility at approximately 90% to untrained listener with moderate background noise. Individual sound production upon imitation is within functional limits, but precision is reduced. In addition, glides (/r/, /w/ and /l/) are imprecise in monosyllabic words, and blends with these sounds are difficult for patient, requiring extra effort and repetition to achieve. Examples: farm pronounced as fam , swarm pronounced as shwarm , sleigh mispronounced with sl over simplified. Recommendation: speech therapy to address dysarthria. Thank you for the referral of this patient.
--- NOTE | 2022-10-28 21:50 | ECHO_ITS ---
Patient Info Name: Haile Mendoza Age: 37 years : 1985 Gender: Male Ht: 67 in Wt: 248 lbs BSA: 2.36 m2 HR: 86 bpm BP: 112 / 85 mmHg Technical Quality: Fair Exam Date: 10/28/2022 9:57 AM Exam Location: [facility] Patient Status: Outpatient Admit Date: 10/27/2022 Staff Ordering Physician: Michelle Wolfe PA-C [employer] Fitter: Bridger Olivier RDCS, RT Attending Provider: Michaela Whipple DO Referring Physician: Aiden CAZARES; Exam Type: CA echo doppler w bubble study Study Info Indications - Paresthesias - Hx of congenital heart defect I10 - Essential (primary) hypertension Complete two-dimensional, color flow and Doppler transthoracic echocardiogram is performed. Summary 1. Complete two-dimensional, color flow and Doppler transthoracic echocardiogram is performed. 2. Left ventricular chamber dimension is normal. 3. Left ventricular systolic function is normal, estimated at 55-60%. 4. The left ventricular diastolic function is grade I diastolic dysfunction. 5. E/e' 4 is not elevated. Left Ventricle E/e' 4 is not elevated. Left ventricular chamber dimension is normal. Left ventricular systolic function is normal, estimated at 55-60%. The left ventricular diastolic function is grade I diastolic dysfunction. Right Ventricle Right ventricular chamber dimension is normal. Right ventricular systolic function is normal. Left Atria Left atrial chamber dimension is normal. Right Atria Right atrial chamber dimension is normal. Atrial Septum Agitated saline injection with and without valsalva maneuver opacified right side cardiac chambers without shunt to left side cardiac chambers. Interatrial septum not well visualized by 2D and agitated saline imaging. Aortic Valve The aortic valve is trileaflet. There is no aortic valve stenosis. There is no aortic valve regurgitation. Pulmonic Valve There is no pulmonic regurgitation. Mitral Valve There is no mitral valve stenosis. There is no mitral valve regurgitation. Tricuspid Valve There is no tricuspid valve regurgitation. Pericardium/Pleural There is no pericardial effusion. Inferior Vena Cava Inferior vena cava is not well visualized. Aorta The aortic root size at the sinus of Valsalva is normal. Left Ventricular Outflow Tract Name Value Normal LVOT Doppler LVOT Peak Gradient 2 mmHg LVOT Mean Gradient 1 mmHg LVOT VTI 11 cm LVOT VTI/AV VTI Ratio 1.0 Mitral Valve Name Value Normal MV Doppler MV Decel [place] 316 cm/s2 MV PHT 44 ms MV Area (PHT) 5.0 cm2 4.0-5.0 MV Diastolic Function MV E Peak Velocity 48 cm/s MV A Peak Velocity 71 cm/s
[2022-10-29 06:33] LABS: Basophils Percent Auto 0.3 % (0.2-1.2); Eosinophils Percent Auto 0.7 % (0-4.4); Hematocrit 39.9 % (42.0-52.0); Hemoglobin 13.4 g/dL (14.0-18.0); Immature Granulocyte Absolute 0.02 K/mm3 (0.00-0.031); Immature Granulocyte Percent A 0.3 % (0-0.5); Lymphocytes Absolute Auto 1.31 K/mm3 (0.9-3.2); Lymphocytes Percent Auto 21.4 % (18.3-44.2); Mean Corpuscular HGB Conc 33.6 g/dl (32-36); Mean Corpuscular Hemoglobin 35.5 pg (26-34); Mean Corpuscular Volume 105.8 fl (80-100); Monocytes Absolute Auto 0.5 K/mm3 (0.1-0.6); Monocytes Percent Auto 8.2 % (2.6-8.5); Neutrophils Absolute Auto 4.2 K/mm3 (1.3-6.7); Neutrophils Percent Auto 69.1 % (45.5-73.1); Platelet Count Result 226 k/mm3 (150-375); Red Blood Count 3.77 M/mm3 (4.6-6.20); Red Cell Distribution Width 12.6 % (11.5-14.5); White Blood Count 6.1 K/mm3 (4.5-10.0)
[2022-10-29 06:45] VITALS: BP 113/85; PULSE 89; RESP 18; TEMP 36.3; O2SAT 96
[2022-10-29 06:57] LABS: Alanine Aminotransferase 49 U/L (6-50); Albumin Level 3.4 g/dL (3.5-5.1); Alkaline Phosphatase 92 U/L (38-126); Anion Gap 6 mmol/L (8-16); Aspartate Amino Transferase 49 U/L (17-59); Bilirubin,Total 0.7 mg/dL (0.2-1.3); Blood Urea Nitrogen 7 mg/dL (9-20); Calcium 8.7 mg/dL (8.4-10.2); Carbon Dioxide 24 mmol/L (22-30); Chloride 107 mmol/L (98-107); Estimated CRCL calculation 251 ml/min; Estimated Glomerular Filt Rate > 60; Glucose 90 mg/dL (65-110); Magnesium 1.8 mg/dL (1.6-2.3); Potassium 4.2 mmol/L (3.4-5.0); Sodium 137 mmol/L (137-145)
[2022-10-29 07:48] LABS: Macrocytosis 1+ (NORMAL); Platelet Estimate Adequate (Adequate); Schistocytes None Seen (NORMAL); Stomatocytes 1+ (NORMAL)
[2022-10-29] MEDS: MAGNESIUM SULF 2 GM/WATER 50ML 2 GM/50 ML BAG IVPB (08:08)
[2022-10-29] MEDS: GABAPENTIN 300 MG CAPSULE PO ×3 (08:09→17:10)
[2022-10-29] MEDS: SERTRALINE HCL 50 MG TABLET 100 MG PO (08:09)
[2022-10-29] MEDS: HYDROcodone/acetaminophen (*CRX) 5-325 MG TABLET 1 TAB PO ×2 (08:09→17:09)
[2022-10-29] MEDS: FOLIC ACID 1 MG TABLET PO (08:09)
[2022-10-29 08:10] VITALS: PULSE 88
[2022-10-29] MEDS: ASPIRIN 81 MG CHEWABLE TABLET PO (08:10)
[2022-10-29] MEDS: carvediloL 3.125 MG TABLET PO ×2 (08:10→21:21)
[2022-10-29] MEDS: MAGNESIUM OXIDE 400 MG TABLET 800 MG PO ×2 (08:10→17:10)
[2022-10-29] MEDS: ENALAPRIL MALEATE 10 MG TABLET 20 MG PO (08:10)
[2022-10-29] MEDS: PANTOPRAZOLE 40 MG TABLET PO (08:10)
[2022-10-29] MEDS: amLODIPine BESYLATE 5 MG TABLET 10 MG PO (08:10)
[2022-10-29] MEDS: levETIRAcetam 500 MG TABLET 1000 MG PO ×2 (08:10→21:21)
[2022-10-29] MEDS: ENOXAPARIN 40 MG/0.4 ML SYRINGE SUB-Q (10:12)
[2022-10-29] MEDS: LIDOCAINE 5% PATCH 1 PATCH TRANSDERM (11:36)
--- NOTE | 2022-10-29 11:45 | PM.IMPN ---
Progress Note: A&P Assessment and Plan (1) Facial paresthesia: Code(s): R20.2 - Paresthesia of skin Status: Acute Assessment and Plan: ongoing issue for upwards of a month Attempted to make an appointment with neurologist however was unable to get in due to long wait period Neuro consulted thank you for your help MRI of brain and spine ordered and pending, awaiting further information of the PFO Chest xray ordered to assess Echo EF of 55-60% with a grade [address] noted significant old findings. Could be secondary to spinal defect (2) Paresthesia of right arm: Code(s): R20.2 - Paresthesia of skin Status: Acute Assessment and Plan: See above (3) Slurred speech: Code(s): R47.81 - Slurred speech Status: Acute Assessment and Plan: Seems to be stable Probably related to tongue numbness Awaiting MRI at this time CT head does show old findings (4) Elevated MCV: Code(s): R71.8 - Other abnormality of red blood cells Status: Acute Assessment and Plan: Anemia labs stable Continue to trend H/H Current H/H 13.4/39.9 (5) Tachycardia: Code(s): R00.0 - Tachycardia, unspecified Status: Acute Assessment and Plan: HR is in the low 100s Continue to trend HR Carvedilol continued Most likely chronic (6) Hypertension: Code(s): I10 - Essential (primary) hypertension Status: Acute Assessment and Plan: BP stable currently 113/85 Continue home amlodipine, enalapril, carvedilol Trend BP Adjust therapy as indicated (7) Chronic pain syndrome: Code(s): G89.4 - Chronic pain syndrome Status: Acute Assessment and Plan: Continue home pain [place] Q8H Trend pain score Adjust therapy as indicated (8) Anxiety: Code(s): F41.9 - Anxiety disorder, unspecified Status: Acute Assessment and Plan: Stable Continue home Xanax (9) Seizure: Code(s): R56.9 - Unspecified convulsions Status: Acute Assessment and Plan: No reported recent siezures Continue keppra 1000mg Q12H Seizure precautions Neuro on board Adjust therapy as indicated Time Spent With Patient Time with patient: Greater than 35 minutes Subjective Date/time seen: 10/29/22 1145 Interval history: 10/29/22 1145 Patient stated that he is doing okay. Patient stated that his pain was pretty high today at a 9/10. He did request a lidocaine patch which has been ordered. Patient still has numbness in his face bilaterally nose, tongue. He did state that his arms are numb as well however he can moving they have equal strength. Sensation is equal bilaterally as well he can move his hands feet. He also response to pain. He denies any chest pain, shortness a breath, nausea, vomiting, diarrhea, constipation. 10/28/22 1000 patient is lying in bed. Patient stated that he still can not feel his face, tongue, nose, lips. He denies any current numbness to his upper extremities. He did state that he was able to eat. He is concerned about his speech is he stated that he feels like his tongue is very big and swollen however it is numb and he can not move it around well enough to annunciate his words. He denies any chest pain, shortness of breath, nausea, vomiting, diarrhea, constipation, weakness or fatigue. 10/27/22 16:30 This is a pleasant 37-year-old male with history of traumatic brain injury, bacterial meningitis, seizures, hypertension, GERD, anxiety, PTSD, and chronic pain who presented to the emergency department via EMS from [facility] for evaluation of numbness in the right arm and face. He has left-sided coordination deficits, reportedly stemming from bacterial meningitis in 2012, and he has occasional paresthesias and
--- NOTE | 2022-10-29 11:45 | P.PNIM_ITS ---
Progress Note: A&P Assessment and Plan (1) Facial paresthesia: Code(s): R20.2 - Paresthesia of skin Status: Acute Assessment and Plan: * ongoing issue for upwards of a month * Attempted to make an appointment with neurologist however was unable to get in due to long wait period * Neuro consulted thank you for your help * MRI of brain and spine ordered and pending, awaiting further information of the PFO * Chest xray ordered to assess * Echo EF of 55-60% with a grade 1 diastolic dysfunction * Brain ct noted significant old findings. * Could be secondary to spinal defect (2) Paresthesia of right arm: Code(s): R20.2 - Paresthesia of skin Status: Acute Assessment and Plan: * See above (3) Slurred speech: Code(s): R47.81 - Slurred speech Status: Acute Assessment and Plan: * Seems to be stable * Probably related to tongue numbness * Awaiting MRI at this time * CT head does show old findings (4) Elevated MCV: Code(s): R71.8 - Other abnormality of red blood cells Status: Acute Assessment and Plan: * Anemia labs stable * Continue to trend H/H * Current H/H 13.4/39.9 (5) Tachycardia: Code(s): R00.0 - Tachycardia, unspecified Status: Acute Assessment and Plan: * HR is in the low 100s * Continue to trend HR * Carvedilol continued * Most likely chronic (6) Hypertension: Code(s): I10 - Essential (primary) hypertension Status: Acute Assessment and Plan: * BP stable currently 113/85 * Continue home amlodipine, enalapril, carvedilol * Trend BP * Adjust therapy as indicated (7) Chronic pain syndrome: Code(s): G89.4 - Chronic pain syndrome Status: Acute Assessment and Plan: * Continue home pain [place] Q8H * Trend pain score * Adjust therapy as indicated (8) Anxiety: Code(s): F41.9 - Anxiety disorder, unspecified Status: Acute Assessment and Plan: * Stable * Continue home Xanax (9) Seizure: Code(s): R56.9 - Unspecified convulsions Status: Acute Assessment and Plan: * No reported recent siezures * Continue keppra 1000mg Q12H * Seizure precautions * Neuro on board * Adjust therapy as indicated Time Spent With Patient Time with patient: Greater than 35 minutes Subjective Date/time seen: 10/29/22 1145 Interval history: 10/29/22 1145 Patient stated that he is doing okay. Patient stated that his pain was pretty high today at a 9/10. He did request a lidocaine patch which has been ordered. Patient still has numbness in his face bilaterally nose, tongue. He did state that his arms are numb as well however he can moving they have equal strength. Sensation is equal bilaterally as well he can move his hands feet. He also response to pain. He denies any chest pain, shortness a breath, nausea, vomiting, diarrhea, constipation. 10/28/22 1000 patient is lying in bed. Patient stated that he still can not feel his face, tongue, nose, lips. He denies any current numbness to his upper extremities. He did state that he was able to eat. He is concerned abo
[2022-10-29 14:00] VITALS: BP 127/93; PULSE 96; RESP 16; TEMP 36.6; O2SAT 98
[2022-10-29 20:00] VITALS: O2SAT 97
[2022-10-29] MEDS: traZODone HCL 50 MG TABLET 100 MG PO (21:21)
[2022-10-29] MEDS: ALPRAZolam (*CRX) 0.5 MG TABLET PO (21:21)
[2022-10-29 21:51] VITALS: O2SAT 98
[2022-10-29 22:00] VITALS: BP 126/81; PULSE 94; RESP 18; TEMP 36.1; O2SAT 97
[2022-10-30] MEDS: SODIUM CHLORIDE 0.9% IV 1,000 ML 125 ML IV CONT ×2 (02:12→09:14)
[2022-10-30 06:00] VITALS: BP 124/93; PULSE 94; RESP 19; TEMP 36; O2SAT 94
[2022-10-30] MEDS: HYDROcodone/acetaminophen (*CRX) 5-325 MG TABLET 1 TAB PO ×2 (06:26→14:39)
[2022-10-30 06:40] LABS: Basophils Percent Auto 0.3 % (0.2-1.2); Eosinophils Absolute Auto 0.1 K/mm3 (0-0.3); Eosinophils Percent Auto 0.8 % (0-4.4); Hemoglobin 13.2 g/dL (14.0-18.0); Immature Granulocyte Absolute 0.02 K/mm3 (0.00-0.031); Immature Granulocyte Percent A 0.3 % (0-0.5); Lymphocytes Absolute Auto 1.42 K/mm3 (0.9-3.2); Lymphocytes Percent Auto 22.9 % (18.3-44.2); Mean Corpuscular HGB Conc 33.8 g/dl (32-36); Mean Corpuscular Hemoglobin 35.3 pg (26-34); Mean Corpuscular Volume 104.3 fl (80-100); Mean Platelet Volume 10.7 fl (7.4-10.4); Monocytes Absolute Auto 0.5 K/mm3 (0.1-0.6); Monocytes Percent Auto 7.9 % (2.6-8.5); Neutrophils Absolute Auto 4.2 K/mm3 (1.3-6.7); Neutrophils Percent Auto 67.8 % (45.5-73.1); Platelet Count Result 209 k/mm3 (150-375); Red Blood Count 3.74 M/mm3 (4.6-6.20); Red Cell Distribution Width 12.5 % (11.5-14.5); White Blood Count 6.2 K/mm3 (4.5-10.0)
[2022-10-30 06:46] LABS: Chloride 102 mmol/L (98-107)
[2022-10-30 06:51] LABS: Alanine Aminotransferase 49 U/L (6-50); Albumin Level 3.5 g/dL (3.5-5.1); Alkaline Phosphatase 87 U/L (38-126); Anion Gap 5 mmol/L (8-16); Aspartate Amino Transferase 50 U/L (17-59); Bilirubin,Total 0.6 mg/dL (0.2-1.3); Blood Urea Nitrogen 6 mg/dL (9-20); Calcium 8.7 mg/dL (8.4-10.2); Carbon Dioxide 25 mmol/L (22-30); Estimated CRCL calculation 251 ml/min; Estimated Glomerular Filt Rate > 60; Glucose 83 mg/dL (65-110); Magnesium 1.8 mg/dL (1.6-2.3); Potassium 4.1 mmol/L (3.4-5.0); Sodium 132 mmol/L (137-145)
[2022-10-30] MEDS: SERTRALINE HCL 50 MG TABLET 100 MG PO (09:12)
[2022-10-30] MEDS: ENOXAPARIN 40 MG/0.4 ML SYRINGE SUB-Q (09:12)
[2022-10-30] MEDS: LIDOCAINE 5% PATCH 1 PATCH TRANSDERM (09:12)
[2022-10-30] MEDS: levETIRAcetam 500 MG TABLET 1000 MG PO ×2 (09:13→21:55)
[2022-10-30] MEDS: FOLIC ACID 1 MG TABLET PO (09:13)
[2022-10-30] MEDS: MAGNESIUM OXIDE 400 MG TABLET 800 MG PO ×2 (09:13→17:32)
[2022-10-30] MEDS: PANTOPRAZOLE 40 MG TABLET PO (09:13)
[2022-10-30] MEDS: carvediloL 3.125 MG TABLET PO ×2 (09:13→21:55)
[2022-10-30] MEDS: amLODIPine BESYLATE 5 MG TABLET 10 MG PO (09:13)
[2022-10-30] MEDS: GABAPENTIN 300 MG CAPSULE PO ×3 (09:13→17:33)
[2022-10-30] MEDS: ASPIRIN 81 MG CHEWABLE TABLET PO (09:13)
[2022-10-30] MEDS: ENALAPRIL MALEATE 10 MG TABLET 20 MG PO (09:13)
--- NOTE | 2022-10-30 10:45 | PM.IMPN ---
Progress Note: A&P Assessment and Plan (1) Facial paresthesia: Code(s): R20.2 - Paresthesia of skin Status: Acute Assessment and Plan: ongoing issue for upwards of a month Attempted to make an appointment with neurologist however was unable to get in due to long wait period Neuro consulted thank you for your help MRI of brain showed No acute intracranial process, Large regions of encephalomalacia at the inferior bilateral anterior frontal lobes and the right temporal lobe and anterior left temporal lobe with distribution favoring extremity brain injury over infarct. 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 MRI of the spine still pending read Chest xray ordered to assess Echo EF of 55-60% with a grade [address] noted significant old findings. Could be secondary to spinal defect (2) Paresthesia of right arm: Code(s): R20.2 - Paresthesia of skin Status: Acute Assessment and Plan: See above (3) Slurred speech: Code(s): R47.81 - Slurred speech Status: Acute Assessment and Plan: Seems to be stable Probably related to tongue numbness Brain MRI see report CT head does show old findings (4) Elevated MCV: Code(s): R71.8 - Other abnormality of red blood cells Status: Acute Assessment and Plan: Anemia labs stable Continue to trend H/H Current H/H 13.2/39.0 (5) Tachycardia: Code(s): R00.0 - Tachycardia, unspecified Status: Acute Assessment and Plan: HR is in the low 100s Continue to trend HR Carvedilol continued Most likely chronic (6) Hypertension: Code(s): I10 - Essential (primary) hypertension Status: Acute Assessment and Plan: BP stable currently 124/93 Continue home amlodipine, enalapril, carvedilol Trend BP Adjust therapy as indicated (7) Chronic pain syndrome: Code(s): G89.4 - Chronic pain syndrome Status: Acute Assessment and Plan: Continue home pain [place] Q8H Trend pain score Adjust therapy as indicated (8) Anxiety: Code(s): F41.9 - Anxiety disorder, unspecified Status: Acute Assessment and Plan: Stable Continue home Xanax (9) Seizure: Code(s): R56.9 - Unspecified convulsions Status: Acute Assessment and Plan: No reported recent siezures Continue keppra 1000mg Q12H Seizure precautions Neuro on board Adjust therapy as indicated Time Spent With Patient Time with patient: Greater than 35 minutes Subjective Date/time seen: 10/30/22 1045 Interval history: 10/30/22 104 Patient stated he is doing about the same. Patient stated he woke this morning his pain was pretty extreme however he got a pain medicine and it was better. He currently denies any chest pain, shortness a breath, nausea, vomiting, diarrhea, constipation, weakness or fatigue. MRIs are complete, however the spinal MRIs are still not read. 10/29/22 1145 Patient stated that he is doing okay. Patient stated that his pain was pretty high today at a 9/10. He did request a lidocaine patch which has been ordered. Patient still has numbness in his face bilaterally nose, tongue. He did state that his arms are numb as well however he can moving they have equal strength. Sensation is equal bilaterally as well he can move his hands feet. He also response to pain. He denies any chest pain, shortness a breath, nausea, vomiting, diarrhea, constipation. 10/28/22 1000 patient is lying in bed. Patient stated that he still can not feel his face, tongue, nose, lips. He denies any current numbness to his upper extremities. He did state that he was able to eat. He is concerned about his speech
--- NOTE | 2022-10-30 10:45 | P.PNIM_ITS ---
Progress Note: A&P Assessment and Plan (1) Facial paresthesia: Code(s): R20.2 - Paresthesia of skin Status: Acute Assessment and Plan: * ongoing issue for upwards of a month * Attempted to make an appointment with neurologist however was unable to get in due to long wait period * Neuro consulted thank you for your help * MRI of brain showed No acute intracranial process, Large regions of encephalomalacia at the inferior bilateral anterior frontal lobes and the right temporal lobe and anterior left temporal lobe with distribution favoring extremity brain injury over infarct. 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 * MRI of the spine still pending read * Chest xray ordered to assess * Echo EF of 55-60% with a grade 1 diastolic dysfunction * Brain ct noted significant old findings. * Could be secondary to spinal defect (2) Paresthesia of right arm: Code(s): R20.2 - Paresthesia of skin Status: Acute Assessment and Plan: * See above (3) Slurred speech: Code(s): R47.81 - Slurred speech Status: Acute Assessment and Plan: * Seems to be stable * Probably related to tongue numbness * Brain MRI see report * CT head does show old findings (4) Elevated MCV: Code(s): R71.8 - Other abnormality of red blood cells Status: Acute Assessment and Plan: * Anemia labs stable * Continue to trend H/H * Current H/H 13.2/39.0 (5) Tachycardia: Code(s): R00.0 - Tachycardia, unspecified Status: Acute Assessment and Plan: * HR is in the low 100s * Continue to trend HR * Carvedilol continued * Most likely chronic (6) Hypertension: Code(s): I10 - Essential (primary) hypertension Status: Acute Assessment and Plan: * BP stable currently 124/93 * Continue home amlodipine, enalapril, carvedilol * Trend BP * Adjust therapy as indicated (7) Chronic pain syndrome: Code(s): G89.4 - Chronic pain syndrome Status: Acute Assessment and Plan: * Continue home pain [place] Q8H * Trend pain score * Adjust therapy as indicated (8) Anxiety: Code(s): F41.9 - Anxiety disorder, unspecified Status: Acute Assessment and Plan: * Stable * Continue home Xanax (9) Seizure: Code(s): R56.9 - Unspecified convulsions Status: Acute Assessment and Plan: * No reported recent siezures * Continue keppra 1000mg Q12H * Seizure precautions * Neuro on board * Adjust therapy as indicated Time Spent With Patient Time with patient: Greater than 35 minutes Subjective Date/time seen: 10/30/22 1045 Interval history: 10/30/22 104 Patient stated he is doing about the same. Patient stated he woke this morning his pain was pretty extreme however he got a pain medicine and it was better. He currently denies any chest pain, shortness a breath, nausea, vomiting, diarrhea, constipation, weakness or fatigue. MRIs are complete, however the spinal MRIs are still not read. 10/29/22 1145 Patient stated that
[2022-10-30 14:00] VITALS: BP 131/81; PULSE 78; RESP 14; TEMP 36.5; O2SAT 95
[2022-10-30 14:30] VITALS: BMI 10.0
--- NOTE | 2022-10-30 14:47 | PCPTNOTE ---
Pt chart reviewed, spoke with nursing and pt currently appears to be at baseline mobility [place]. [facility] a [facility], is a poor historian as he believes he still lives in an apartment independently. Requested pt sit EOB to take meds with nursing to which he declined to perform at this time. Will reattempt therapy at a later time.
[2022-10-30 21:26] VITALS: BP 131/89; PULSE 98; RESP 18; TEMP 36.6; O2SAT 94
[2022-10-30 21:55] VITALS: PULSE 98
[2022-10-30] MEDS: ALPRAZolam (*CRX) 0.5 MG TABLET PO (21:55)
[2022-10-30] MEDS: traZODone HCL 50 MG TABLET 100 MG PO (21:55)
[2022-10-31 06:00] VITALS: BP 137/94; PULSE 88; RESP 18; TEMP 36.3; O2SAT 96
[2022-10-31 06:53] LABS: Basophils Percent Auto 0.3 % (0.2-1.2); Eosinophils Percent Auto 0.7 % (0-4.4); Hematocrit 38.3 % (42.0-52.0); Immature Granulocyte Absolute 0.02 K/mm3 (0.00-0.031); Immature Granulocyte Percent A 0.3 % (0-0.5); Lymphocytes Absolute Auto 1.24 K/mm3 (0.9-3.2); Lymphocytes Percent Auto 20.3 % (18.3-44.2); Mean Corpuscular HGB Conc 33.9 g/dl (32-36); Mean Corpuscular Volume 103.2 fl (80-100); Mean Platelet Volume 10.7 fl (7.4-10.4); Monocytes Absolute Auto 0.5 K/mm3 (0.1-0.6); Monocytes Percent Auto 8.4 % (2.6-8.5); Neutrophils Absolute Auto 4.3 K/mm3 (1.3-6.7); Platelet Count Result 183 k/mm3 (150-375); Red Blood Count 3.71 M/mm3 (4.6-6.20); Red Cell Distribution Width 12.3 % (11.5-14.5); White Blood Count 6.1 K/mm3 (4.5-10.0)
[2022-10-31 07:00] LABS: Alanine Aminotransferase 53 U/L (6-50); Albumin Level 3.5 g/dL (3.5-5.1); Alkaline Phosphatase 86 U/L (38-126); Anion Gap 9 mmol/L (8-16); Aspartate Amino Transferase 52 U/L (17-59); Bilirubin,Total 0.8 mg/dL (0.2-1.3); Blood Urea Nitrogen 5 mg/dL (9-20); Calcium 8.7 mg/dL (8.4-10.2); Carbon Dioxide 25 mmol/L (22-30); Chloride 103 mmol/L (98-107); Estimated CRCL calculation 251 ml/min; Estimated Glomerular Filt Rate > 60; Glucose 83 mg/dL (65-110); Magnesium 1.6 mg/dL (1.6-2.3); Potassium 3.8 mmol/L (3.4-5.0); Sodium 137 mmol/L (137-145)
--- NOTE | 2022-10-31 09:15 | P.PNIM_ITS ---
Progress Note: A&P Assessment and Plan (1) Facial paresthesia: Code(s): R20.2 - Paresthesia of skin Status: Acute Assessment and Plan: * ongoing issue for upwards of a month * Attempted to make an appointment with neurologist however was unable to get in due to long wait period * Neuro consulted thank you for your help * MRI of brain showed No acute intracranial process, Large regions of encephalomalacia at the inferior bilateral anterior frontal lobes and the right temporal lobe and anterior left temporal lobe with distribution favoring extremity brain injury over infarct. 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 * MRI of the spine shows mainly spondolysis, cervical spine came back inconcl usive due to motion artifact. * CT of the cervical spinal ordered * Echo EF of 55-60% with a grade 1 diastolic dysfunction * Brain ct noted significant old findings. * Could be secondary to spinal defect (2) Paresthesia of right arm: Code(s): R20.2 - Paresthesia of skin Status: Acute Assessment and Plan: * See above (3) Slurred speech: Code(s): R47.81 - Slurred speech Status: Acute Assessment and Plan: * Seems to be stable * Probably related to tongue numbness * Brain MRI see report * CT head does show old findings (4) Elevated MCV: Code(s): R71.8 - Other abnormality of red blood cells Status: Acute Assessment and Plan: * Anemia labs stable * Continue to trend H/H * Current H/H 13.0/38.3 (5) Tachycardia: Code(s): R00.0 - Tachycardia, unspecified Status: Acute Assessment and Plan: * HR is in the low 100s * Continue to trend HR * Carvedilol continued * Most likely chronic (6) Hypertension: Code(s): I10 - Essential (primary) hypertension Status: Acute Assessment and Plan: * BP stable currently 137/94 * Continue home amlodipine, enalapril, carvedilol * Trend BP * Adjust therapy as indicated (7) Chronic pain syndrome: Code(s): G89.4 - Chronic pain syndrome Status: Acute Assessment and Plan: * Continue home pain [place] Q8H * Trend pain score * Adjust therapy as indicated (8) Anxiety: Code(s): F41.9 - Anxiety disorder, unspecified Status: Acute Assessment and Plan: * Stable * Continue home Xanax (9) Seizure: Code(s): R56.9 - Unspecified convulsions Status: Acute Assessment and Plan: * No reported recent siezures * Continue keppra 1000mg Q12H * Seizure precautions * Neuro on board * Adjust therapy as indicated Time Spent With Patient Time with patient: Greater than 35 minutes Subjective Date/time seen: 10/31/22914 Interval history: 10/31/22914 Patient is not too happy today. Talked to him about standing, and he fears that he will be dropped. He also did try to do some therapy yesterday but was started to have some muscle spasms. Cervical MRI was read as incomplete due to motion artifact. CT was ordered, awaiting completion. 10/30/22 [id number]
--- NOTE | 2022-10-31 09:15 | PM.IMPN ---
Progress Note: A&P Assessment and Plan (1) Facial paresthesia: Code(s): R20.2 - Paresthesia of skin Status: Acute Assessment and Plan: ongoing issue for upwards of a month Attempted to make an appointment with neurologist however was unable to get in due to long wait period Neuro consulted thank you for your help MRI of brain showed No acute intracranial process, Large regions of encephalomalacia at the inferior bilateral anterior frontal lobes and the right temporal lobe and anterior left temporal lobe with distribution favoring extremity brain injury over infarct. 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 MRI of the spine shows mainly spondolysis, cervical spine came back inconclusive due to motion artifact. CT of the cervical spinal ordered Echo EF of 55-60% with a grade [address] noted significant old findings. Could be secondary to spinal defect (2) Paresthesia of right arm: Code(s): R20.2 - Paresthesia of skin Status: Acute Assessment and Plan: See above (3) Slurred speech: Code(s): R47.81 - Slurred speech Status: Acute Assessment and Plan: Seems to be stable Probably related to tongue numbness Brain MRI see report CT head does show old findings (4) Elevated MCV: Code(s): R71.8 - Other abnormality of red blood cells Status: Acute Assessment and Plan: Anemia labs stable Continue to trend H/H Current H/H 13.0/38.3 (5) Tachycardia: Code(s): R00.0 - Tachycardia, unspecified Status: Acute Assessment and Plan: HR is in the low 100s Continue to trend HR Carvedilol continued Most likely chronic (6) Hypertension: Code(s): I10 - Essential (primary) hypertension Status: Acute Assessment and Plan: BP stable currently 137/94 Continue home amlodipine, enalapril, carvedilol Trend BP Adjust therapy as indicated (7) Chronic pain syndrome: Code(s): G89.4 - Chronic pain syndrome Status: Acute Assessment and Plan: Continue home pain [place] Q8H Trend pain score Adjust therapy as indicated (8) Anxiety: Code(s): F41.9 - Anxiety disorder, unspecified Status: Acute Assessment and Plan: Stable Continue home Xanax (9) Seizure: Code(s): R56.9 - Unspecified convulsions Status: Acute Assessment and Plan: No reported recent siezures Continue keppra 1000mg Q12H Seizure precautions Neuro on board Adjust therapy as indicated Time Spent With Patient Time with patient: Greater than 35 minutes Subjective Date/time seen: 10/31/22914 Interval history: 10/31/22914 Patient is not too happy today. Talked to him about standing, and he fears that he will be dropped. He also did try to do some therapy yesterday but was started to have some muscle spasms. Cervical MRI was read as incomplete due to motion artifact. CT was ordered, awaiting completion. 10/30/22 1045 Patient stated he is doing about the same. Patient stated he woke this morning his pain was pretty extreme however he got a pain medicine and it was better. He currently denies any chest pain, shortness a breath, nausea, vomiting, diarrhea, constipation, weakness or fatigue. MRIs are complete, however the spinal MRIs are still not read. 10/29/22 1145 Patient stated that he is doing okay. Patient stated that his pain was pretty high today at a 9/10. He did request a lidocaine patch which has been ordered. Patient still has numbness in his face bilaterally nose, tongue. He did state that his arms are numb as well however he can moving they have equal strength. Sensation is equal bilaterally as well he can mo
[2022-10-31] MEDS: ASPIRIN 81 MG CHEWABLE TABLET PO (09:26)
[2022-10-31 09:27] VITALS: PULSE 72
[2022-10-31] MEDS: carvediloL 3.125 MG TABLET PO ×2 (09:27→21:09)
[2022-10-31] MEDS: FOLIC ACID 1 MG TABLET PO (09:28)
[2022-10-31] MEDS: ENOXAPARIN 40 MG/0.4 ML SYRINGE SUB-Q (09:28)
[2022-10-31] MEDS: ENALAPRIL MALEATE 10 MG TABLET 20 MG PO (09:28)
[2022-10-31] MEDS: GABAPENTIN 300 MG CAPSULE PO ×3 (09:29→16:32)
[2022-10-31] MEDS: LIDOCAINE 5% PATCH 1 PATCH TRANSDERM (09:29)
[2022-10-31] MEDS: levETIRAcetam 500 MG TABLET 1000 MG PO ×2 (09:29→21:09)
[2022-10-31] MEDS: MAGNESIUM OXIDE 400 MG TABLET 800 MG PO ×2 (09:30→16:32)
[2022-10-31] MEDS: SERTRALINE HCL 50 MG TABLET 100 MG PO (09:30)
[2022-10-31] MEDS: PANTOPRAZOLE 40 MG TABLET PO (09:30)
[2022-10-31] MEDS: HYDROcodone/acetaminophen (*CRX) 5-325 MG TABLET 1 TAB PO ×2 (09:31→21:14)
[2022-10-31] MEDS: amLODIPine BESYLATE 5 MG TABLET 10 MG PO (09:33)
--- NOTE | 2022-10-31 11:23 | PCPTNOTE ---
Unable to complete evaluation at this time per nursing d/t psychosocial issues. Will reattempt PT evaluation as able.
[2022-10-31] MEDS: MAGNESIUM SULF 4 GM/WATER100ML 4 GM/100 ML BAG IVPB (13:17)
[2022-10-31 14:00] VITALS: BP 124/85; PULSE 93; RESP 14; TEMP 36.5; O2SAT 96
[2022-10-31] MEDS: HYDROmorphone HCL INJ (*CRX) 1 MG/ML SYR 0.5 MG IV PUSH (14:36)
[2022-10-31 15:39] VITALS: BMI 10.0
[2022-10-31 21:09] VITALS: PULSE 97
[2022-10-31] MEDS: ALPRAZolam (*CRX) 0.5 MG TABLET PO (21:09)
[2022-10-31] MEDS: traZODone HCL 50 MG TABLET 100 MG PO (21:09)
[2022-10-31 21:37] VITALS: BP 129/90; PULSE 97; RESP 18; TEMP 36.5; O2SAT 94
[2022-11-01 05:20] VITALS: BP 130/88; PULSE 90; RESP 18; TEMP 36.7; O2SAT 98
[2022-11-01] MEDS: LIDOCAINE 5% PATCH 1 PATCH TRANSDERM (08:45)
--- NOTE | 2022-11-01 08:45 | P.PNIM_ITS ---
Progress Note: A&P Assessment and Plan (1) Facial paresthesia: Code(s): R20.2 - Paresthesia of skin Status: Acute Assessment and Plan: * ongoing issue for upwards of a month * Attempted to make an appointment with neurologist however was unable to get in due to long wait period * Neuro consulted thank you for your help * MRI of brain showed No acute intracranial process, Large regions of encephalomalacia at the inferior bilateral anterior frontal lobes and the right temporal lobe and anterior left temporal lobe with distribution favoring extremity brain injury over infarct. 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 * MRI of the spine shows mainly spondylolysis, cervical spine came back incon clusive due to motion artifact. * CT of the cervical spinal showed mild spondylosis, with mild right neural foraminal narrowing at C6-7, and C7-T1 * Echo EF of 55-60% with a grade 1 diastolic dysfunction * Brain ct noted significant old findings. * Could be secondary to spinal defect * Consulted Neurosurgery (2) Paresthesia of right arm: Code(s): R20.2 - Paresthesia of skin Status: Acute Assessment and Plan: * See above (3) Slurred speech: Code(s): R47.81 - Slurred speech Status: Acute Assessment and Plan: * Seems to be stable * Probably related to tongue numbness * Brain MRI see report * CT head does show old findings (4) Elevated MCV: Code(s): R71.8 - Other abnormality of red blood cells Status: Acute Assessment and Plan: * Anemia labs stable * Continue to trend H/H * Current H/H 13.0/38.3 (5) Tachycardia: Code(s): R00.0 - Tachycardia, unspecified Status: Acute Assessment and Plan: * HR is in the low 100s * Continue to trend HR * Carvedilol continued * Most likely chronic (6) Hypertension: Code(s): I10 - Essential (primary) hypertension Status: Acute Assessment and Plan: * BP stable currently 140/90 * Continue home amlodipine, enalapril, carvedilol * Trend BP * Adjust therapy as indicated (7) Chronic pain syndrome: Code(s): G89.4 - Chronic pain syndrome Status: Acute Assessment and Plan: * Continue home pain [place] Q8H * Trend pain score * Adjust therapy as indicated (8) Anxiety: Code(s): F41.9 - Anxiety disorder, unspecified Status: Acute Assessment and Plan: * Stable * Continue home Xanax (9) Seizure: Code(s): R56.9 - Unspecified convulsions Status: Acute Assessment and Plan: * No reported recent siezures * Continue keppra 1000mg Q12H * Seizure precautions * Neuro on board * Adjust therapy as indicated Time Spent With Patient Time with patient: Greater than 35 minutes Subjective Date/time seen: 11/01/22844 Interval history: 11/01/22844 Patient stated that he is in a lot of pain. He also stated that his face and arms are still numb. Having a hard time getting his imaging read. Will consult neurosurgery. He denies any chest pain, shortness of
--- NOTE | 2022-11-01 08:45 | PM.IMPN ---
Progress Note: A&P Assessment and Plan (1) Facial paresthesia: Code(s): R20.2 - Paresthesia of skin Status: Acute Assessment and Plan: ongoing issue for upwards of a month Attempted to make an appointment with neurologist however was unable to get in due to long wait period Neuro consulted thank you for your help MRI of brain showed No acute intracranial process, Large regions of encephalomalacia at the inferior bilateral anterior frontal lobes and the right temporal lobe and anterior left temporal lobe with distribution favoring extremity brain injury over infarct. 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 MRI of the spine shows mainly spondylolysis, cervical spine came back inconclusive due to motion artifact. CT of the cervical spinal showed mild spondylosis, with mild right neural foraminal narrowing at C6-7, and C7-T1 Echo EF of 55-60% with a grade [address] noted significant old findings. Could be secondary to spinal defect Consulted Neurosurgery (2) Paresthesia of right arm: Code(s): R20.2 - Paresthesia of skin Status: Acute Assessment and Plan: See above (3) Slurred speech: Code(s): R47.81 - Slurred speech Status: Acute Assessment and Plan: Seems to be stable Probably related to tongue numbness Brain MRI see report CT head does show old findings (4) Elevated MCV: Code(s): R71.8 - Other abnormality of red blood cells Status: Acute Assessment and Plan: Anemia labs stable Continue to trend H/H Current H/H 13.0/38.3 (5) Tachycardia: Code(s): R00.0 - Tachycardia, unspecified Status: Acute Assessment and Plan: HR is in the low 100s Continue to trend HR Carvedilol continued Most likely chronic (6) Hypertension: Code(s): I10 - Essential (primary) hypertension Status: Acute Assessment and Plan: BP stable currently 140/90 Continue home amlodipine, enalapril, carvedilol Trend BP Adjust therapy as indicated (7) Chronic pain syndrome: Code(s): G89.4 - Chronic pain syndrome Status: Acute Assessment and Plan: Continue home pain [place] Q8H Trend pain score Adjust therapy as indicated (8) Anxiety: Code(s): F41.9 - Anxiety disorder, unspecified Status: Acute Assessment and Plan: Stable Continue home Xanax (9) Seizure: Code(s): R56.9 - Unspecified convulsions Status: Acute Assessment and Plan: No reported recent siezures Continue keppra 1000mg Q12H Seizure precautions Neuro on board Adjust therapy as indicated Time Spent With Patient Time with patient: Greater than 35 minutes Subjective Date/time seen: 11/01/22844 Interval history: 11/01/22844 Patient stated that he is in a lot of pain. He also stated that his face and arms are still numb. Having a hard time getting his imaging read. Will consult neurosurgery. He denies any chest pain, shortness of breath, nausea, vomiting, diarrhea, constipation. 10/31/22 09 Patient is not too happy today. Talked to him about standing, and he fears that he will be dropped. He also did try to do some therapy yesterday but was started to have some muscle spasms. Cervical MRI was read as incomplete due to motion artifact. CT was ordered, awaiting completion. 10/30/22 1045 Patient stated he is doing about the same. Patient stated he woke this morning his pain was pretty extreme however he got a pain medicine and it was better. He currently denies any chest pain, shortness a breath, nausea, vomiting, diarrhea, constipation, weakness or fatigue. MRIs are complete, however the spinal MRIs are still not read.
[2022-11-01] MEDS: ENOXAPARIN 40 MG/0.4 ML SYRINGE SUB-Q (08:46)
[2022-11-01] MEDS: GABAPENTIN 300 MG CAPSULE PO (08:46)
[2022-11-01] MEDS: levETIRAcetam 500 MG TABLET 1000 MG PO ×2 (08:47→20:46)
[2022-11-01] MEDS: SERTRALINE HCL 50 MG TABLET 100 MG PO (08:47)
[2022-11-01] MEDS: ENALAPRIL MALEATE 10 MG TABLET 20 MG PO (08:47)
[2022-11-01] MEDS: ASPIRIN 81 MG CHEWABLE TABLET PO (08:47)
[2022-11-01 08:48] VITALS: PULSE 98
[2022-11-01] MEDS: amLODIPine BESYLATE 5 MG TABLET 10 MG PO (08:48)
[2022-11-01] MEDS: carvediloL 3.125 MG TABLET PO ×2 (08:48→20:46)
[2022-11-01] MEDS: MAGNESIUM OXIDE 400 MG TABLET 800 MG PO ×2 (08:49→16:46)
[2022-11-01] MEDS: PANTOPRAZOLE 40 MG TABLET PO (08:49)
[2022-11-01] MEDS: HYDROcodone/acetaminophen (*CRX) 5-325 MG TABLET 1 TAB PO ×2 (09:13→16:46)
--- NOTE | 2022-11-01 10:41 | PCPTNOTE ---
Addendum entered by Gustabo Kuhn, NIB ADJUSTER 11/01/22 12:00: Returned to see patient for treatment, however patient ready to eat lunch and requests PT return later today. Original Note: The patient treatment was not able to be completed at this time due to patient going for CT scan. Will plan to continue treatment per plan of care.
[2022-11-01] MEDS: GABAPENTIN 400 MG CAPSULE PO ×2 (12:21→16:46)
[2022-11-01 13:20] VITALS: BMI 10.0
[2022-11-01 13:55] VITALS: BMI 10.0
[2022-11-01 14:00] VITALS: BP 140/90; PULSE 110; RESP 18; TEMP 35.9; O2SAT 92
[2022-11-01] MEDS: ALPRAZolam (*CRX) 0.5 MG TABLET PO (20:46)
[2022-11-01] MEDS: traZODone HCL 50 MG TABLET 100 MG PO (20:46)
[2022-11-01 21:56] VITALS: BP 125/80; PULSE 100; RESP 14; TEMP 36.6; O2SAT 92
[2022-11-02 05:55] VITALS: BP 131/83; PULSE 112; RESP 14; TEMP 36.3; O2SAT 91
[2022-11-02 06:17] LABS: Basophils Percent Auto 0.4 % (0.2-1.2); Eosinophils Absolute Auto 0.1 K/mm3 (0-0.3); Eosinophils Percent Auto 0.6 % (0-4.4); Hematocrit 42.1 % (42.0-52.0); Hemoglobin 14.2 g/dL (14.0-18.0); Immature Granulocyte Absolute 0.02 K/mm3 (0.00-0.031); Immature Granulocyte Percent A 0.3 % (0-0.5); Lymphocytes Absolute Auto 1.42 K/mm3 (0.9-3.2); Lymphocytes Percent Auto 18.3 % (18.3-44.2); Mean Corpuscular HGB Conc 33.7 g/dl (32-36); Mean Corpuscular Volume 103.7 fl (80-100); Mean Platelet Volume 10.1 fl (7.4-10.4); Monocytes Absolute Auto 0.6 K/mm3 (0.1-0.6); Monocytes Percent Auto 7.9 % (2.6-8.5); Neutrophils Absolute Auto 5.6 K/mm3 (1.3-6.7); Neutrophils Percent Auto 72.5 % (45.5-73.1); Platelet Count Result 190 k/mm3 (150-375); Red Blood Count 4.06 M/mm3 (4.6-6.20); Red Cell Distribution Width 12.5 % (11.5-14.5); White Blood Count 7.8 K/mm3 (4.5-10.0)
[2022-11-02 06:33] LABS: Alanine Aminotransferase 52 U/L (6-50); Albumin Level 3.7 g/dL (3.5-5.1); Alkaline Phosphatase 75 U/L (38-126); Anion Gap 8 mmol/L (8-16); Aspartate Amino Transferase 47 U/L (17-59); Blood Urea Nitrogen 5 mg/dL (9-20); Calcium 8.6 mg/dL (8.4-10.2); Carbon Dioxide 27 mmol/L (22-30); Chloride 99 mmol/L (98-107); Estimated CRCL calculation 251 ml/min; Estimated Glomerular Filt Rate > 60; Glucose 86 mg/dL (65-110); Magnesium 1.7 mg/dL (1.6-2.3); Potassium 3.8 mmol/L (3.4-5.0); Sodium 134 mmol/L (137-145)
[2022-11-02] MEDS: LIDOCAINE 5% PATCH 1 PATCH TRANSDERM (08:06)
[2022-11-02] MEDS: ENOXAPARIN 40 MG/0.4 ML SYRINGE SUB-Q (08:07)
[2022-11-02] MEDS: FOLIC ACID 1 MG TABLET PO (08:09)
[2022-11-02] MEDS: levETIRAcetam 500 MG TABLET 1000 MG PO (08:09)
[2022-11-02] MEDS: MAGNESIUM OXIDE 400 MG TABLET 800 MG PO ×2 (08:09→16:43)
[2022-11-02] MEDS: SERTRALINE HCL 50 MG TABLET 100 MG PO (08:09)
[2022-11-02] MEDS: GABAPENTIN 400 MG CAPSULE PO ×3 (08:09→16:43)
[2022-11-02] MEDS: ENALAPRIL MALEATE 10 MG TABLET 20 MG PO (08:10)
[2022-11-02] MEDS: ASPIRIN 81 MG CHEWABLE TABLET PO (08:10)
[2022-11-02] MEDS: PANTOPRAZOLE 40 MG TABLET PO (08:10)
[2022-11-02] MEDS: amLODIPine BESYLATE 5 MG TABLET 10 MG PO (08:10)
[2022-11-02 08:12] VITALS: PULSE 110
[2022-11-02] MEDS: carvediloL 3.125 MG TABLET PO (08:12)
[2022-11-02] MEDS: HYDROcodone/acetaminophen (*CRX) 5-325 MG TABLET 1 TAB PO ×2 (08:29→15:59)
--- NOTE | 2022-11-02 12:15 | PM.DS ---
DS: Admitting Diagnosis Discharge Date 11/02/2022 1215 Admitting Diagnosis paraesthesia DS: Discharge Diagnosis Discharge Diagnosis (1) Facial paresthesia: Code(s): R20.2 - Paresthesia of skin Status: Acute Assessment and Plan: ongoing issue for upwards of a month Attempted to make an appointment with neurologist however was unable to get in due to long wait period Neuro consulted thank you for your help MRI of brain showed No acute intracranial process, Large regions of encephalomalacia at the inferior bilateral anterior frontal lobes and the right temporal lobe and anterior left temporal lobe with distribution favoring extremity brain injury over infarct. 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 MRI of the spine shows mainly spondylolysis, cervical spine came back inconclusive due to motion artifact. CT of the cervical spinal showed mild spondylosis, with mild right neural foraminal narrowing at C6-7, and C7-T1 Echo EF of 55-60% with a grade [address] noted significant old findings. Could be secondary to spinal defect Consulted Neurosurgery Spoke with neurosurgery and neurology that do not see any findings that could be the reason for the symptoms. (2) Paresthesia of right arm: Code(s): R20.2 - Paresthesia of skin Status: Acute Assessment and Plan: See above (3) Slurred speech: Code(s): R47.81 - Slurred speech Status: Acute Assessment and Plan: Seems to be stable Probably related to tongue numbness Brain MRI see report CT head does show old findings (4) Elevated MCV: Code(s): R71.8 - Other abnormality of red blood cells Status: Acute Assessment and Plan: Anemia labs stable Continue to trend H/H Current H/H 13.0/38.3 (5) Tachycardia: Code(s): R00.0 - Tachycardia, unspecified Status: Acute Assessment and Plan: HR is in the low 100s Continue to trend HR Carvedilol continued Most likely chronic (6) Hypertension: Code(s): I10 - Essential (primary) hypertension Status: Acute Assessment and Plan: BP stable currently 140/90 Continue home amlodipine, enalapril, carvedilol Trend BP Adjust therapy as indicated (7) Chronic pain syndrome: Code(s): G89.4 - Chronic pain syndrome Status: Acute Assessment and Plan: Continue home pain [place] Q8H Trend pain score Adjust therapy as indicated (8) Anxiety: Code(s): F41.9 - Anxiety disorder, unspecified Status: Acute Assessment and Plan: Stable Continue home Xanax (9) Seizure: Code(s): R56.9 - Unspecified convulsions Status: Acute Assessment and Plan: No reported recent siezures Continue keppra 1000mg Q12H Seizure precautions Neuro on board Adjust therapy as indicated Plan Could be a case of conversion disorder, switched some of his medications to help with this finding Will recommend a nerve conduction study Changed Xanax to PRN TID, and temazepam to PO at night DS: Summary Hospital Course Hospital Course: patient is a 37-year-old male with a past medical history of TBI, anxiety, congenital heart defect, GERD, seizure, bacterial meningitis who presented to the ED with complaints of facial paresthesia and bilateral arm paresthesia. Patient also has significant amounts of neuropathy. MRIs of the brain, cervical, thoracic, lumbar spine have been performed and mainly showed spondylolysis. The brain did show chronic findings. Neurology has been on the case along with Neurosurgery. Both services do not see any findings that would correlate with symptoms. Cervical CT did show narrowing at C6-7 and C7-T1. However jordan
--- NOTE | 2022-11-02 12:15 | P.DS_ITS ---
DS: Admitting Diagnosis Discharge Date 11/02/2022 1215 Admitting Diagnosis paraesthesia DS: Discharge Diagnosis Discharge Diagnosis (1) Facial paresthesia: Code(s): R20.2 - Paresthesia of skin Status: Acute Assessment and Plan: * ongoing issue for upwards of a month * Attempted to make an appointment with neurologist however was unable to get in due to long wait period * Neuro consulted thank you for your help * MRI of brain showed No acute intracranial process, Large regions of encephalomalacia at the inferior bilateral anterior frontal lobes and the right temporal lobe and anterior left temporal lobe with distribution favoring extremity brain injury over infarct. 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 * MRI of the spine shows mainly spondylolysis, cervical spine came back inconclusive due to motion artifact. * CT of the cervical spinal showed mild spondylosis, with mild right neural foraminal narrowing at C6-7, and C7-T1 * Echo EF of 55-60% with a grade 1 diastolic dysfunction * Brain ct noted significant old findings. * Could be secondary to spinal defect * Consulted Neurosurgery Spoke with neurosurgery and neurology that do not see any findings that could be the reason for the symptoms. (2) Paresthesia of right arm: Code(s): R20.2 - Paresthesia of skin Status: Acute Assessment and Plan: * See above (3) Slurred speech: Code(s): R47.81 - Slurred speech Status: Acute Assessment and Plan: * Seems to be stable * Probably related to tongue numbness * Brain MRI see report * CT head does show old findings (4) Elevated MCV: Code(s): R71.8 - Other abnormality of red blood cells Status: Acute Assessment and Plan: * Anemia labs stable * Continue to trend H/H * Current H/H 13.0/38.3 (5) Tachycardia: Code(s): R00.0 - Tachycardia, unspecified Status: Acute Assessment and Plan: * HR is in the low 100s * Continue to trend HR * Carvedilol continued * Most likely chronic (6) Hypertension: Code(s): I10 - Essential (primary) hypertension Status: Acute Assessment and Plan: * BP stable currently 140/90 * Continue home amlodipine, enalapril, carvedilol * Trend BP * Adjust therapy as indicated (7) Chronic pain syndrome: Code(s): G89.4 - Chronic pain syndrome Status: Acute Assessment and Plan: * Continue home pain [place] Q8H * Trend pain score * Adjust therapy as indicated (8) Anxiety: Code(s): F41.9 - Anxiety disorder, unspecified Status: Acute Assessment and Plan: * Stable * Continue home Xanax (9) Seizure: Code(s): R56.9 - Unspecified convulsions Status: Acute Assessment and Plan: * No reported recent siezures * Continue keppra 1000mg Q12H * Seizure precautions * Neuro on board * Adjust therapy as indicated Plan * Could be a case of conversion disorder, switched some of his medications to help with this finding Will recommend a nerve conduction study
--- NOTE | 2022-11-02 13:57 | PCOTNOTE ---
Attempted to see pt for Occupational therapy this afternoon. Due to increased pain (05/26) all over and all of my nerves are on fire , pt declined to participate in therapy session. Pt was offered to complete session EOB or supine and declined. Pt was educated on the importance of continued participation in therapy for strengthening and independence with daily tasks. RN was made aware of pt's refusal and his request for a stronger pain medication that was given through his IV before. Will continue per POC duration/frequency tomorrow.
[2022-11-02 14:00] VITALS: BP 130/80; PULSE 104; RESP 18; TEMP 35.8; O2SAT 93
[2022-11-02] MEDS: ALPRAZolam (*CRX) 0.5 MG TABLET PO (14:09)
[2022-11-02 16:27] LABS: EDCOVIDSCREEN Negative (Negative)
--- NOTE | 2022-11-02 17:20 | PCCCNOTE ---
Phone call received from Katelynn that they have been trying to call Deng Leonardo for report at [phone] and have been unsuccessful to get through and the ambulance is here to transport him. This housekeeper child care called [phone], no answer and it goes on a loop, hit zero for the rope tow operator and when you hit zero it does a busy/dial tone and then repeats about hitting zero for rope tow operator. Called to emilee Ball at [phone], she states that the are aware that he is coming, she has texted the [facility] number for the the nurse to call hospital and receive report and she will call facility also herself. She states that if ambulance is here that we can send him. Called to [facility] per[facility] Pace and notified of above.
--- NOTE | 2022-11-02 17:42 | PC.NURSE ---
This nurse called to give report to [facility] 3 times. The dental secretary also tried to call. With no answer we got aheliza of ED care coordination. They got aheliza of [facility]. She said that we can arrange for an ambulance to come pick pt up. If the [facility] calls me back then I will give report, but we are still sending the pt back to where he originated from.
== END 2022-11-02 19:25 ==
LOC: ANHED 15:05 → ANH3MEDSUR 17:35
PROVIDERS: Nurse Practitioner; Physician Assistant; Admitting Provider Student in an Organized Health Care Education/Training Program; Emergency Provider Nurse Practitioner Family; PCP Physician Assistant Medical; Visit Provider Chiropractor
DX: R20.2 Paresthesia of skin (principal); R47.81 Slurred speech; R71.8 Other abnormality of red blood cells; R00.0 Tachycardia, unspecified; I11.9 Hypertensive heart disease without heart failure; G89.4 Chronic pain syndrome; F41.9 Anxiety disorder, unspecified; R56.1 Post traumatic seizures; R53.1 Weakness; I45.10 Unspecified right bundle-branch block; R20.0 Anesthesia of skin; Z20.822 Contact with and (suspected) exposure to COVID-19; J98.11 Atelectasis; M47.812 Spondylosis without myelopathy or radiculopathy, cervical region; M47.816 Spondylosis without myelopathy or radiculopathy, lumbar region; K21.9 Gastro-esophageal reflux disease without esophagitis; E78.00 Pure hypercholesterolemia, unspecified; F43.10 Post-traumatic stress disorder, unspecified; R94.31 Abnormal electrocardiogram [ECG] [EKG]; F10.90 Alcohol use, unspecified, uncomplicated; G93.89 Other specified disorders of brain; Z87.820 Personal history of traumatic brain injury; Z86.61 Personal history of infections of the central nervous system; Z79.82 Long term (current) use of aspirin; Z79.891 Long term (current) use of opiate analgesic; Z79.899 Other long term (current) drug therapy
CPT/HCPCS: 36415; 70450; 70553; 71045; 72125; 72156; 72157; 72158; 80053; 81001; 82550; 82607; 82728; 82746; 83540; 83550; 83735; 84443; 85025; 85027; 87426; 87636; 92507; 92523; 93005; 93306; 96365; 96366; 96372; 96374; 96375; 96376; 97110; 97163; 97167; 97530; 99285; A9270; A9577; C9803; G0378; J1170; J1650; J3475; J7030

== ENCOUNTER 2023-02-03 09:14 | Outpatient (CLI) | payer MEDICARE, MEDICAID, SELFPAY ==
--- NOTE | 2023-02-03 11:00 | NEURO_ITS ---
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 # Normal upper extremity motor nerve conduction study. 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 # Normal motor and sensory nerve conduction study of lower extremities. # Needle/EMG exam not requested. Nerve Conduction Studies Anti Sensory Summary Table Stim Site NR Peak (ms) P-T Amp (?V) Site1 Site2 Delta-P (ms) Dist (cm) Aidan (m/s) Left Median Anti Sensory (2-3nd Digit) Wrist 3.7 22.1 Wrist 2-3nd Digit 3.7 14.0 38 Wrist 3.8 24.0 Wrist 2-3nd Digit 3.7 14.0 38 Right Median Anti Sensory (2-3nd Digit) Wrist 3.6 9.6 Wrist 2-3nd Digit 3.6 14.0 39 Wrist 4.0 45.4 Wrist 2-3nd Digit 3.6 14.0 39 Left Radial Anti Sensory (Base 1st Digit) Wrist 2.8 5.6 Wrist Base 1st Digit 2.8 0.0 Right Radial Anti Sensory (Base 1st Digit) NO RESPONSE Wrist NR Wrist Base 1st Digit 0.0 Left Sup Fibular Anti Sensory (Ant Lat Mall) 14 cm 4.0 11.8 14 cm Ant Lat Mall 4.0 16.0 40 2.7 39.2 Right Sup Fibular Anti Sensory (Ant Lat Mall) 14 cm 3.8 7.8 14 cm Ant Lat Mall 3.8 16.0 42 Left Sural Anti Sensory (Lat Mall) Calf 3.5 15.8 Calf Lat Mall 3.5 16.0 46 Right Sural Anti Sensory (Lat Mall) Calf 3.7 14.1 Calf Lat Mall 3.7 16.0 43 Left Ulnar Anti Sensory (5th Digit) NO RESPONSE Wrist NR Wrist 5th Digit 14.0 Right Ulnar Anti Sensory (5th Digit) NO RESPONSE Wrist NR Wrist 5th Digit 14.0 Motor Summary Table Stim Site NR Onset (ms) O-P Amp (mV) Site1 Site2 Delta-0 (ms) Dist (cm) Aidan (m/s) Left Median Motor (Abd Poll Brev) Wrist 2.8 6.6 Elbow Wrist 6.5 33.0 51 Elbow 9.3 5.1 Right Median Motor (Abd Poll Brev) Wrist 3.5 8.4 Elbow Wrist 6.3 32.0 51 Elbow 9.8 6.9 Left Peroneal Motor (Vastus Med) Ankle 4.5 2.5 Popit Ankle 10.8 43.0 40 Popit 15.3 1.8 Right Peroneal Motor (Vastus Med) Ankle 4.9 0.7 Popit Ankle 10.6 44.0 42 Popit 15.5 1.6 Left Tibial Motor (Abd Nino Brev) Ankle 5.0 4.0 Knee Ankle 11.1 44.0 40 Knee 16.1 2.3 Right Tibial Motor (Abd Nino Brev) Ankle 5.2 1.0 Knee Ankle 11.8 47.0 40 Knee 17.0 1.2 Left Ulnar Motor (Abd Dig Minimi) Wrist 3.1 6.6 A Elbow Wrist 6.7 33.0 49 A Elbow 9.8 5.3 Right Ulnar Motor (Abd Dig Minimi) Wrist 3.0 5.2 A Elbow Wrist 6.8 33.0 49 A Elbow 9.8 4.3 B Elbow Wrist 4.9 24.0 49 B Elbow 7.9 3.8 F Wave Studies NR F-Lat (ms) L-R F-Lat (ms) Left Median (Mrkrs) (Abd Poll Brev) 33.09 0.06 Right Median (Mrkrs) (Abd Poll Brev) 33.03 0.06 Left Peroneal (Mrkrs) (EDB) 62.44 1.18 Right Peroneal (Mrkrs) (EDB) 61.26 1.18 Left Tibial (Mrkrs) (Abd Hallucis) 63.41 0.45 Right Tibial (Mrkrs) (Abd Hallucis) 63.86 0.45 Left Ulnar (Mrkrs) (Abd Dig Min) 34.22 0.81 Right Ulnar (Mrkrs) (Abd Dig Min) 33.41 0.81 MTDD
== END 2023-02-03 09:15 | disposition home or self-care (01) ==
LOC: ANHNEURO 09:18
PROVIDERS: PCP Physician Assistant Medical; Visit Provider Internal Medicine
DX: G60.9 Hereditary and idiopathic neuropathy, unspecified (principal); G56.23 Lesion of ulnar nerve, bilateral upper limbs
CPT/HCPCS: 95913

== ENCOUNTER 2024-08-01 11:40 | Emergency (ER) | payer MEDICARE, MEDICAID, SELFPAY ==
--- NOTE | ~2024-08-01 | XR_ITS ---
Left Shoulder Technique: AP and scapular Y views were obtained. Clinical History: Pain Findings: There is a large, acute, minimally fracture involving the greater tuberosity of the humerus . No definite surgical neck fracture. AC joint and glenohumeral joint are intact otherwise. Soft tiss ues are unremarkable. Impression: Large, acute, minimally displaced fracture of the greater tuberosity of the humerus. Reviewed, dictated and finalized at location M. Impression: Large, acute, minimally displaced fracture of the greater tuberosity of the hum erus.
[2024-08-01 11:43] VITALS: BP 124/68; PULSE 78; RESP 16; TEMP 36.4; O2SAT 100
--- NOTE | 2024-08-01 12:19 | ED.UPPEXIN ---
HPI - Extremity Injury (Upper) General Chief Complaint: Extremity Injury, Upper Stated Complaint: shoulder pain Time Seen by Provider: 08/01/24 12:06 Source: patient Limitations: no limitations History of Present Illness HPI narrative: [facility] from [facility] complaining of left shoulder pain after slipping and falling last night. Patient denies any other trauma. Related Data Home Medications Medication Instructions Recorded Confirmed amlodipine 10 mg tablet 10 mg PO DAILY 10/27/22 10/27/22 aspirin 81 mg chewable tablet 81 mg PO DAILY 10/27/22 10/27/22 carvedilol 3.125 mg tablet 3.125 mg PO BID 10/27/22 10/27/22 chlorzoxazone 500 mg tablet 500 mg PO BID 10/27/22 10/27/22 cholecalciferol (vitamin D3) 1,250 1,250 mcg PO WEEKLY 10/27/22 10/27/22 mcg (50,000 unit) capsule enalapril maleate 20 mg tablet 20 mg PO DAILY 10/27/22 10/27/22 folic acid 1 mg tablet 1 mg PO DAILY 10/27/22 10/27/22 gabapentin 300 mg capsule 300 mg PO TID 10/27/22 10/27/22 levetiracetam 1,000 mg tablet 1,000 mg PO Q12H 10/27/22 10/27/22 lidocaine 5 % topical ointment 1 applic topical QID PRN Pain 10/27/22 10/27/22 magnesium oxide 800 mg PO BID 10/27/22 10/27/22 omeprazole 20 mg capsule,delayed 20 mg PO DAILY 10/27/22 10/27/22 release sertraline 100 mg tablet 100 mg PO DAILY 10/27/22 10/27/22 trazodone 100 mg tablet 100 mg PO HS 10/27/22 10/27/22 Allergies Allergy/AdvReac Type Severity Reaction Status Date / Time allopurinol Allergy Weakness Verified 10/27/22 15:54 Review of Systems Review of Systems: All systems reviewed & are unremarkable except as noted in HPI and below PMFSH Past Medical History Medical History Anxiety Bacterial meningitis (2012) Chronic pain syndrome Congenital heart disorder Gastroesophageal reflux disease Hypercholesterolemia Hypertension Posttraumatic stress disorder Seizure Traumatic brain injury (2004) Surgical History Surgical History History of heart surgery Repair of hole in heart. History of tonsillectomy History of wisdom tooth extraction Family History Family History Other Family history unknown Social History Social History Social History: Surrogate decision maker: Patrick Mendoza, brother. Code status: Full code. Smoking status: Never smoker Alcohol intake: current Drinks per week: 1 Substance use: never Lack of Transportation: No Lack of Food: Never True Current Housing: I Have Housing Concerned About Future Housing: No Difficulty Paying Gas/Electric Bills: No Difficulty Paying for Meds: No Currently Unemployed: No Education: Decline to Answer Difficulty w/ Childcare or Family Care: No Additional living arrangements comments: The patient was living in his own apartment prior to his recent hospitalization. Currently at [facility] for rehab. Spiritual care concerns: No Exam Narrative: General appearance: Well-developed, well-nourished Skin: Normal color Head: Normocephalic, nontraumatic Eyes: Clear conjunctiva ENT: Oropharynx normal, ears normal, nose normal Neck: Supple, nontender Chest and respiratory: Airway patent, no respiratory distress, no accessory muscle use Heart: Regular rate/rhythm Abdomen: Soft, nontender, no organomegaly, quiet bowel sounds Vascular: Normal peripheral pulses, normal capillary refill. Musculoskeletal: Diffuse tenderness left shoulder, no bruises, slight limited range of motion, no deformity Neurologic: Alert and oriented ?3, Course Vital Signs Vital signs: Vital Signs Temperature 36.4 C 08/01/24 11:43 Pulse Rate 78 08/01/24
[2024-08-01 12:31] VITALS: BP 118/82; PULSE 76; RESP 16; TEMP 36.6; O2SAT 97
--- NOTE | 2024-08-01 13:32 | PC.NURSE ---
This RN spoke to private secretary from [facility]. tried to speak with RN 3 times but no one answered. wanted to update nurse on prescription increase.
== END 2024-08-01 13:26 ==
LOC: ANHED 12:53
PROVIDERS: Emergency Provider Emergency Medicine; PCP Physician Assistant Medical
DX: S42.252A Displaced fracture of greater tuberosity of left humerus, initial encounter for closed fracture (principal); E78.00 Pure hypercholesterolemia, unspecified; I10 Essential (primary) hypertension; K21.9 Gastro-esophageal reflux disease without esophagitis; G89.4 Chronic pain syndrome; F41.9 Anxiety disorder, unspecified; F43.10 Post-traumatic stress disorder, unspecified; Z87.820 Personal history of traumatic brain injury; Z87.74 Personal history of (corrected) congenital malformations of heart and circulatory system; Z79.899 Other long term (current) drug therapy; W01.0XXA Fall on same level from slipping, tripping and stumbling without subsequent striking against object, initial encounter
CPT/HCPCS: 73030; 99284; A4565

== ENCOUNTER 2025-09-30 19:44 | Emergency (ER) | payer MEDICARE, MEDICAID, SELFPAY ==
--- NOTE | ~2025-09-30 | XR_ITS ---
XR chest 1V portable INDICATION:syncope . REFERENCE: None FINDINGS: A single AP of the chest demonstrates normal heart size. The lungs are clear. There is no evidence of pneumothorax or pleural effusion. IMPRESSION: No acute pulmonary findings. Reviewed, dictated and finalized at location S. WARE SYSTEMS ANALYST
[2025-09-30 19:42] VITALS: BP 84/58; PULSE 60; RESP 12; TEMP 36.6; O2SAT 94
--- NOTE | 2025-09-30 19:54 | ECG_ITS ---
Test Date: 2025-09-30 20:04:20 Measurements Intervals [place] Rate: 59 P: 18 MN: 181 QRS: -4 QRSD: 124 T: 40 QT: 439 QTc: 438 Interpretive Statements SINUS BRADYCARDIA INCOMPLETE RIGHT BUNDLE BRANCH BLOCK VOLTAGE CRITERIA FOR LVH BASELINE ARTIFACT- V3-V4 BORDERLINE ECG No previous ECG available for comparison Electronically Signed On 10-01-2025 06:01:44 [employer] by Christopher Browning D.O.
[2025-09-30] MEDS: LACTATED RINGERS 1,000 ML 999 ML IV CONT ×2 (20:12→22:00)
[2025-09-30 20:17] VITALS: BP 82/50; PULSE 53
[2025-09-30 20:18] VITALS: BP 85/64; PULSE 65
[2025-09-30 20:20] LABS: Hematocrit 48.7 % (42.0-52.0); Hemoglobin 17.0 g/dL (14.0-18.0); Immature Granulocyte Percent A 0.2 % (0-0.5); Lymphocytes Absolute Auto 4.25 K/mm3 (0.9-3.2); Mean Corpuscular HGB Conc 34.9 g/dl (32-36); Mean Corpuscular Hemoglobin 31.4 pg (26-34); Mean Corpuscular Volume 90.0 fl (80-100); Nucleated Red Blood Cells Absolute Auto 0.000 K/mm3 (0.0-0.012); Nucleated Red Blood Cells Perc 0.0 % (0.0-0.2); Platelet Count Result 277 k/mm3 (150-375); Red Blood Count 5.41 M/mm3 (4.6-6.20); White Blood Count 11.6 K/mm3 (4.5-10.0)
--- NOTE | 2025-09-30 20:29 | ED.SYNCOPE ---
HPI - Syncope General Chief Complaint: Syncope Stated Complaint: Syncope/altered Time Seen by Provider: 09/30/25 20:04 History of Present Illness HPI narrative: 40-year-old male with a history of traumatic brain injury in 2004, bacterial meningitis in 2012, 1 seizure in life time at 2012 but still takes prophylactic Keppra 1000 mg b.i.d.. Patient is paraplegic with a wheelchair. He is otherwise in his normal state of health presently but did have a syncopal event witnessed by shelter staff at his facility. Patient states that he was up and had a family outing today did not eat breakfast or lunch and did not eat dinner yet and he was outside smoking a cigarette and came into the facility tried to wash his hands at this station and lost consciousness briefly. Staff were immediately concerned administered Narcan intranasally but patient woke up right away and acting appropriately. He denies adamantly any substance use today besides the cigarette denies any fentanyl or opiates. He states he thinks he just felt lightheaded and had low sugar as he did not eat or drink anything throughout the day as he was outside with family. He also took a dose of his enalapril malleate this morning and did not eat. He states he is completely asymptomatic at this time and has no complaints. Denies any headache, vision changes, nausea, vomiting, abdominal pain, chest pain, back pain, weakness. No new neurological deficits. He has chronic weakness and paraplegia from his prior TBI 20 years ago. Has not had any medication changes recently or any recent health concerns. He is expressing desire to go back to his nurse facility at this time. Related Data Home Medications ?Medication ?Instructions ?Recorded ?Confirmed ?Last Taken ?Type amlodipine 10 mg tablet 10 mg PO DAILY 10/27/22 10/30/24 Unknown History aspirin 81 mg chewable tablet 81 mg PO DAILY 10/27/22 10/30/24 Unknown History carvedilol 3.125 mg tablet 3.125 mg PO BID 10/27/22 10/30/24 Unknown History chlorzoxazone 500 mg tablet 500 mg PO BID 10/27/22 10/30/24 Unknown History cholecalciferol (vitamin D3) 1,250 1,250 mcg PO WEEKLY 10/27/22 10/30/24 Unknown History mcg (50,000 unit) capsule enalapril maleate 20 mg tablet 20 mg PO DAILY 10/27/22 10/30/24 Unknown History folic acid 1 mg tablet 1 mg PO DAILY 10/27/22 10/30/24 Unknown History gabapentin 300 mg capsule 300 mg PO TID 10/27/22 10/30/24 Unknown History levetiracetam 1,000 mg tablet 1,000 mg PO Q12H 10/27/22 10/30/24 Unknown History lidocaine 5 % topical ointment 1 applic topical QID PRN Pain 10/27/22 10/30/24 Unknown History magnesium oxide 800 mg PO BID 10/27/22 10/30/24 Unknown History omeprazole 20 mg capsule,delayed 20 mg PO DAILY 10/27/22 10/30/24 Unknown History release sertraline 100 mg tablet 100 mg PO DAILY 10/27/22 10/30/24 Unknown History trazodone 100 mg tablet 100 mg PO HS 10/27/22 10/30/24 Unknown History Allergies Allergy/AdvReac Type Severity Reaction Status Date / Time allopurinol Allergy Weakness Verified 10/30/24 07:43 Review of Systems Review of Systems: as reviewed above in HPI All systems reviewed & are unremarkable except as noted in HPI and below PMFSH Past Medical History Medical History Closed fracture of left proximal humerus Congenital heart disorder Hypertension Gastroesophageal reflux disease Hypercholesterolemia Chronic pain syndrome Posttraumatic stress disorder Anxiety Seizure Bacterial meningitis (2012) Traumatic brain injury (2004) Surgical History Surgical History History of heart surgery Repair of hole in heart. History of wisdom tooth extraction History of tonsillectomy Family History Family History Unknown Neuropathy Other Family history unknown Social History Social History Social History: Surrogate decision maker: Patrick Mendoza, brother. Code status: Full code. Smoking status: Current every day smoker Tobacco type: cigarettes Alcohol intake: current Drinks per week: 1 Substance use: never Lack of Transportation: No Lack of Food: Never True Current Housing: I Have Housing Concerned About Future Housing: No Difficulty Paying Gas/Electric Bills: No Difficulty Paying for Meds: No Currently Unemployed: No Education: Decline to Answer Difficulty w/ Childcare or Family Care: No Additional living arrangements comments: The patient resides at [facility] in [place] Gender identity (if verbalized by the patient): Male Spiritual care concerns: No Exam Narrative: GENERAL: overall very well-appearing and in good spirits. Conversational and pleasant speak with, not any distress and awake alert oriented, coherent speech without any signs of intoxicants or altered mental status HEAD: [Normocephalic, atraumatic.] EYES: [PERRLA and EOMI.] ENT: Nares clear, no rhinorrhea or epistaxis. Mucous membranes moist. NECK: Supple. CHEST: clear to auscultation, no tachypnea or respiratory distress. No wheezing HEART: [Regular rate and rhythm]. No murmur heard. [Normal peripheral pulses.] ABDOMEN: [Soft, nondistended], [nontender], [No rigidity or guarding] EXTREMITIES: no edema SKIN: Warm, dry, no rash. NEURO: chronic paraplegia, no new focal deficits, alert oriented x4 PSYCH: [Normal mood and affect.] Course Vital Signs Vital signs: Vital Signs Temperature 36.6 C 09/30/25 19:42 Pulse Rate 60 09/30/25 19:42 Respiratory Rate 12 09/30/25 19:42 Blood Pressure 84/58 L 09/30/25 19:42 Pulse Oximetry 94 09/30/25 19:42 Oxygen Delivery Room Air 09/30/25 19:42 Temperature 36.6 C 09/30/25 19:42 Pulse Rate 64 09/30/25 23:49 Respiratory Rate 14 09/30/25 23:49 Blood Pressure 113/74 09/30/25 23:49 Pulse Oximetry 95 09/30/25 23:49 Oxygen Delivery Room Air 09/30/25 19:42 Discharge Plan Discharge Clinical Impression: Syncope, Acute dehydration, LAKIA (acute kidney injury) Patient Disposition: Home Condition: Stable Instructions: Antibiotic Form, Dehydration (ED), Syncope (ED) Additional Instructions: Laboratory studies show some dehydration with an acute kidney injury likely from not eating or drinking throughout the day and taking enalapril. We hydrated you here and your vital signs are all normal now. No other emergent concerns raise but we did offer admission for continued evaluation and hydration but you would like to go home at this time. Return with any emergent concerns of recurrent symptoms. Patient Language: Kyrgyz Prescriptions: No Action chlorzoxazone 500 mg tablet 500 mg PO BID enalapril maleate 20 mg tablet 20 mg PO DAILY sertraline 100 mg tablet 100 mg PO DAILY trazodone 100 mg tablet 100 mg PO HS gabapentin 300 mg capsule 300 mg PO TID omeprazole 20 mg Capsule,Delayed Release(Dr/Ec) 20 mg PO DAILY levetiracetam 1,000 mg tablet 1,000 mg PO Q12H lidocaine 5 % ointment 1 applic topical QID PRN (Reason: Pain) Rx Instructions: apply to neck, back and legs as needed carvedilol 3.125 mg Tablet 3.125 mg PO BID amlodipine 10 mg Tablet 10 mg PO DAILY aspirin 81 mg Tablet,Chewable 81 mg PO DAILY folic acid 1 mg Tablet 1 mg PO DAILY cholecalciferol (vitamin D3) 1,250 mcg (50,000 unit) Capsule 1,250 mcg PO WEEKLY Rx Instructions: next dose to be 10/31/22 magnesium oxide 400 mg magnesium Tablet 800 mg PO BID temazepam 15 mg Capsule 15 mg PO HS Qty: 10 0RF alprazolam 0.5 mg tablet 0.5 mg PO TID PRN (Reason: Anxiety) Qty: 9 0RF hydrocodone-acetaminophen 5-325 mg tablet 1 tablet PO Q8H Qty: 4 0RF Follow-up/Referrals: Dariel Lujan MD [Primary Care Provider, General Surgery] Time of Disposition: 23:15 [facility] MDM Narrative Medical decision making narrative: 40-year-old male with a history of traumatic brain injury in 2004, bacterial meningitis in 2012, 1 seizure in life time at 2012 but still takes prophylactic Keppra 1000 mg b.i.d.. Patient is paraplegic with a wheelchair. He is otherwise in his normal state of health presently but did have a syncopal event witnessed by shelter staff at his facility. Patient states that he was up and had a family outing today did not eat breakfast or lunch and did not eat dinner yet and he was outside smoking a cigarette and came into the facility tried to wash his hands at this station and lost consciousness briefly. Staff were immediately concerned administered Narcan intranasally but patient woke up right away and acting appropriately. He denies adamantly any substance use today besides the cigarette denies any fentanyl or opiates. He states he thinks he just felt lightheaded and had low sugar as he did not eat or drink anything throughout the day as he was outside with family. He also took a dose of his enalapril malleate this morning and did not eat. He states he is completely asymptomatic at this time and has no complaints. Denies any headache, vision changes, nausea, vomiting, abdominal pain, chest pain, back pain, weakness. No new neurological deficits. He has chronic weakness and paraplegia from his prior TBI 20 years ago. Has not had any medication changes recently or any recent health concerns. He is expressing desire to go back to his nurse facility at this time. Patient is in good spirits and not any distress. He is pleasant to speak with and has no complaints at this time. He is appreciative of staff for taking care of him and states he feels completely fine and would like to go back to his skilled care facility at this time. Initially I did order a head CT given his historical elements but now do not feel like that is necessary after having more in depth conversation with the patient and that he is at his baseline mentation and likely explanation of his having a syncopal event was that he did not eat or drink anything throughout the day and took enalapril this morning and does have some soft blood pressure readings here. No traumatic injuries or head injury or any evidence of mental status changes or neurological concern at this time. Orthostatic vitals negative, no tachycardia, tachypnea or fever. No signs of symptoms of infection at this time. We will hydrate him and recheck his blood pressures as well as a blood sugar and lactic acid in case he potentially had a seizure although very unlikely given the lack of any postictal phase or any seizure in the last 20 years and he is on Keppra maintenance. Will place on threat monitoring analyst obtain EKG and chest x-ray in addition to the labs and re-evaluated frequently. Patient again states he would just like to go back home but agreed for workup at this time. urine drug screen positive for benzos which He has a prescription for. Negative for opiates. Urinalysis shows no signs of infection. Fluids improved his blood pressure. He does have evidence of slight dehydration with an elevated creatinine. Blood pressure 110/70. Remains asymptomatic and expressing desire to go back home to his facility. Offered admit for hydration and correction of LAKIA but he declined politely. No urgent or emergent concerns. hydrated and symptom free at this time. Safe for discharge back to skilled care facility at this time. Differential Diagnosis Differential Diagnosis: syncope, seizure, orthostatic, vasovagal event, infection, electrolyte derangement, dehydration, hypoglycemia Lab Data MDM Lab Attestation statement: I personally reviewed the patient's lab results. 09/30/25 20:15 09/30/25 20:15 Labs: Lab Results 09/30/25 09/30/25 Range/Units 20:15 22:28 WBC 11.6 H (4.5-10.0) K/mm3 RBC 5.41 (4.6-6.20) M/mm3 Hgb 17.0 (14.0-18.0) g/dL Hct 48.7 (42.0-52.0) % MCV 90.0 (80-100) fl MCH 31.4 (26-34) pg MCHC 34.9 (32-36) g/dl RDW 12.6 (11.5-14.5) % Plt Count 277 (150-375) k/mm3 MPV 10.2 (7.4-10.4) fl Immature Gran % (Auto) 0.2 (0-0.5) % Neut % (Auto) 55.0 (45.5-73.1) % Lymph % (Auto) 36.5 (18.3-44.2) % [place] % (Auto) 6.4 (2.6-8.5) % Eos % (Auto) 1.2 (0-4.4) % Baso % (Auto) 0.7 (0.2-1.2) % Lymph # (Auto) 4.25 H (0.9-3.2) K/mm3 [place] # (Auto) 0.8 H (0.1-0.6) K/mm3 Eos # (Auto) 0.1 (0-0.3) K/mm3 Baso # (Auto) 0.1 (0.0-0.1) K/mm3 Abs Immat Gran (auto) 0.02 (0.00-0.031) K/mm3 Absolute Neuts (auto) 6.4 (1.3-6.7) K/mm3 Absolute Nucleated RBC 0.000 (0.0-0.012) K/mm3 Nucleated RBC % 0.0 (0.0-0.2) % Sodium 139 (137-145) mmol/L Potassium 4.3 (3.4-5.0) mmol/L Chloride 108 H (98-107) mmol/L Carbon Dioxide 22 (22-30) mmol/L Anion Gap 9 (4-12) mmol/L BUN 18 D (9-20) mg/dL Creatinine 1.57 H (0.7-1.3) mg/dL Estim Creat Clear Calc 75 ml/min Estimated GFR 49 L (59 - ) Glucose 109 (65-110) mg/dL Lactic Acid 2.3 H (0.7-2.0) mmol/L Calcium 9.2 (8.4-10.2) mg/dL Total Bilirubin 0.8 (0.2-1.3) mg/dL AST 63 H (17-59) U/L ALT 25 (6-50) U/L Alkaline Phosphatase 63 (38-126) U/L Total Protein 7.9 (6.3-8.2) g/dL Albumin 4.8 (3.5-5.1) g/dL Urine Color Yellow (Yellow) Urine Appearance Clear (Clear) Urine pH 5.0 (5.0-9.0) Ur Specific [place] 1.013 (1.001-1.035) Urine Protein Trace (Negative) mg/dL Urine Glucose (UA) Negative (Negative) mg/dL Urine Ketones Negative (Negative) mg/dL Ur Blood (Man) Negative (Negative) Urine Nitrate Negative (Negative) Urine Bilirubin Negative (Negative) Urine Urobilinogen 0.2 (<2.0) mg/dL Leukocyte Esterase Rfl Negative (Negative) EDWIN/UL Urine RBC 0-2 (0-2) /hpf Urine WBC 0-5 (0-3) /hpf Ur Squamous Epith Cells None seen (Few) /hpf Urine Bacteria None seen /hpf Urine Casts 3-5 Urine Opiates Screen Negative (Negative) Urine Methadone Screen Negative (Negative) Ur Barbiturates Screen Negative (Negative) Ur Phencyclidine Scrn Negative (Negative) Ur Amphetamine Screen Negative (Negative) U Benzodiazepines Scrn Positive A (Negative) Urine Cocaine Screen Negative (Negative) U Cannabinoids Screen Negative (Negative) Imaging Data Attestation: I personally reviewed and interpreted this imaging study as follows: My impression: Impressions Chest X-Ray 09/30/25 20:09 IMPRESSION: No acute pulmonary findings. Radiologist's impression: ITS Impressions Chest X-Ray 09/30/25 20:09
[2025-09-30 20:32] LABS: Alanine Aminotransferase 25 U/L (6-50); Albumin Level 4.8 g/dL (3.5-5.1); Alkaline Phosphatase 63 U/L (38-126); Anion Gap 9 mmol/L (4-12); Aspartate Amino Transferase 63 U/L (17-59); Bilirubin,Total 0.8 mg/dL (0.2-1.3); Blood Urea Nitrogen 18 mg/dL (9-20); Calcium 9.2 mg/dL (8.4-10.2); Carbon Dioxide 22 mmol/L (22-30); Chloride 108 mmol/L (98-107); Estimated CRCL calculation 75 ml/min; Estimated Glomerular Filt Rate 49; Glucose 109 mg/dL (65-110); Potassium 4.3 mmol/L (3.4-5.0); Sodium 139 mmol/L (137-145); Total Protein 7.9 g/dL (6.3-8.2)
[2025-09-30 21:10] VITALS: BP 100/67; PULSE 59; RESP 13; O2SAT 97
[2025-09-30 21:31] VITALS: BP 110/70; PULSE 58; RESP 15; O2SAT 96
--- OUTSIDE RECORDS SUMMARY | 2025-09-30 22:13 | XMS_ITS | Clinical Summary ---
Author Organization [facility] Address [address] [place] [address] Phone Care Team Providers Care Manga Artist Name Role Phone Marko Gordon MD Primary Care Provide r Allergies Active Allergy Reactions Criticality Noted Date Comments Allopurinol Dizziness 09/22/2022 Medications levETIRAcetam (KEPPRA) 1000 MG tablet one tab,two times daily 0 6 Active aspirin (ST NAVDEEP) 81 MG EC tablet Take 81 mg by mouth 1 (one) time each day Active ergocalciferol (VITAMIN D-2) 1.25 MG (98777 UT) capsule Take 50,000 Units by mouth 1 (one) time per week Active gabapentin (NEURONTIN) 300 MG capsule Take 300 mg by mouth in the morning and 300 mg in the evening and 300 mg before bedtime. Active amLODIPine (NORVASC) 10 MG tablet Take 10 mg by mouth 1 (one) time each day Active chlorzoxazone (PARAFON FORTE) 500 MG tablet Take 500 mg by mouth in the morning and 500 mg in the evening. Active magnesium citrate solution Take 296 mL by mouth 1 (one) time Active folic acid (FOLVITE) 1 MG tablet Take 1 mg by mouth 1 (one) time each day Active magnesium oxide (MAG-OX) 400 mg tablet Take 400 mg by mouth in the morning and 400 mg in the evening. 2 tabs two times daily (800mg bid). Active ALPRAZolam (XANAX) 0.5 MG tablet Take 0.5 mg by mouth 3 (three) times a day if needed for anxiety Active omeprazole (PriLOSEC) [address] capsule Take 20 mg by mouth 1 (one) time each day Active pyridoxine (B-6) 100 MG tablet Take 100 mg by mouth 1 (one) time each day Active sertraline (ZOLOFT) 100 MG tablet Take 100 mg by mouth 1 (one) time each day Active temazepam (RESTORIL) 15 MG capsule Take 15 mg by mouth at night if needed for sleep Active tetracaine (ALTACAINE) 0.5 % ophthalmic solution Administer 1 drop into both eyes every 6 (six) hours Active cyanocobalamin 500 MCG tablet Take 500 mcg by mouth 1 (one) time each day Active enalapril (VASOTEC) 20 MG tablet Take 20 mg by mouth 1 (one) time each day Active omega-3 (FISH OIL) 1000 MG capsule Take 1,000 mg by mouth in the morning and 1,000 mg in the evening. Active polyethylene glycol (GLYCOLAX) 17 g packet Take 17 g by mouth 1 (one) time each day Active traZODone (DESYREL) 100 MG tablet Take 100 mg by mouth every night Active Active Problems Problem Noted Date Diagnosed Date Chronic pain 05/01/2025 Nephrotic syndrome with foca l and segmental glomerular lesions 03/08/2017 Anxiety disorder 08/11/2016 Chronic kidney disease stage 2 07/16/2016 Essential (primary) hypertension 07/16/2016 Epilepsy, not intractable, without status epilep ticus 07/16/2016 Resolved Problems Problem Noted Date Diagnosed Date Resolved Date Personal history of meningitis 03/29/2023 11/06/2024 Hyperuricemia 04/21/2022 09/26/2023 Acute pancreatitis 09/16/2021 Neuropathy 08/04/2021 11/06/2024 Social phobia 08/14/2019 09/26/2023 Immunizations Immunization Administration Dates Next Due Influenza Split High Dose Pr eservative Free IM 01/25/2018(Deferred: Patient Refused) Influenza TIV (IM) 07/19/2016 Family History Medical History Relation Comments Kidney disease Relative Relation Status Comments Relative Social History Tobacco Use Types Packs/Day Years Used Date Smoking Tobacco: Light Smoker Smokeless Tobacco: Never Tobacco Cessation:Ready to Q uit: Not Asked; Counseling Given: Not Answered Alcohol Use Standard Drinks/Week Comments Yes 0 (1 standard drink = 0.6 oz pure alcohol) Alcoholic Drinks/day: history of abuse and sober for 7 years. Still drinks occasionally Exercise Vital Sign Answer Date Recorde d Days of Exercise per Week 1 day 2018 Minutes of Exercise per Session Not on file 01/23/2019 Sex and Gender Information Value Date Recorded Sex Assigned at Not on file Legal Sex Male 9:43 AM [facility] Gender Identity Not on file Sexual Orientation Not on file Occupation Industry Job Start Date Job End Date Unemployed Not on file Not on file Not on file Last Filed Vital Signs Vital Sign Reading Time Taken Comments Blood Pressure 116/75 05/01/2025 1:55 PM CDT Pulse 74 05/01/2025 1:55 PM CDT Temperature - - Respiratory Rate - - Oxygen Saturation - - Inhaled Oxygen Concentration - - Weight 121 kg (267 lb) 11/07/2024 3:27 PM BENCH LATHE OPERATOR Height 198.1 cm (6' 6) 05/01/2025 1:55 PM CDT Body Mass Index 30.85 11/07/2024 3:27 PM BENCH LATHE OPERATOR Plan of Treatment Upcoming Encounters Date Type Department Care Team ([facility] Contact Info) Description 10/30/2025 2:00 PM BENCH LATHE OPERATOR Office Visit [facility] [address] [facility] [address] [place] [address] Edgard Curry MD [address] [id number] Health Maintenance Due Date Last Done Comments Pneumococcal PPSV23 Highest Risk Adult (1 of 3 - PCV13) 2004 Influenza Vaccine (#1) 2025 07/19/2016, 2015 Insurance [facility] [place] [address] Care Teams Manga Artist Relationship Specialty Start Date End Date Marko Gordon MD [address] [place] [address] PCP - General 12/17/19
--- OUTSIDE RECORDS SUMMARY | 2025-09-30 22:13 | XMS_ITS | Clinical Summary ---
Author Organization [facility] Address [address] [place] [address] Care Team Providers Care Baseball Sewer Hand Name Role Phone Unavailable Primary Care Provider Unavailabl e Allergies Active Allergy Reactions Criticality Noted Date Comments Allopurinol Other (See comments) Low 05/19/2022 Weakness (falls) Medications enalapril (VASOTEC) 20 mg tablet Take 1 tablet by mouth daily 02/18/20 20 Active aspirin 81 mg enteric coated tablet Take 81 mg by mouth daily Active folic acid (FOLVITE) 1 mg tabletIndications: Dietary folate deficiency anemia Take 1 tablet (1 mg total) by mouth daily 30 tablet 08/29/20 21 Active Additional Information Patient not taking.Reported on 05/03/2022 gabapentin (NEURONTIN) 300 mg capsuleIndications :Peripheral polyneuropathy Take 1 capsule (300 mg total) by mouth 3 (three) times a day 270 capsule 2 11/16/19 22 Active lidocaine (XYLOCAINE) 5 % ointment APPLY EXTERNALLY TO THE AFFECTED AREA FOUR TIMES DAILY 04/01/20 22 Active sertraline (ZOLOFT) 100 mg tablet Take 1 tablet (100 mg total) by mouth daily 90 tablet 3 08/08/20 22 Active levETIRAcetam (KEPPRA) 1,000 mg tablet Take 1 tablet (1,000 mg total) by mouth 2 (two) times a day 180 tablet 09/20/20 22 Active ondansetron ODT (ZOFRAN-ODT) 4 mg disintegrating tablet Take 1 tablet (4 mg total) by mouth every 6 (six) hours as needed for nausea or vomiting 20 tablet 09/27/20 22 Active omeprazole (PriLOSEC) 20 mg capsule Take 20 mg by mouth daily Active chlorzoxazone (PARAFON FORTE) 500 mg tabletIndications: Muscle Spasm Take 500 mg by mouth 2 (two) times a day Active magnesium oxide (MAG-OX) 400 mg (241.3 mg elemental magnesium) tabletIndications: hypomagnesemia Take 2 tablets (800 mg total) by mouth 2 (two) times a day 120 tablet 10/12/20 22 Active carvediloL (COREG) 3.125 mg tablet Take 1 tablet (3.125 mg total) by mouth 2 (two) times a day with meals 60 tablet 10/12/20 22 Active amLODIPine (NORVASC) 10 mg tablet Take 1 tablet (10 mg total) by mouth daily 30 tablet 10/13/20 22 Active HYDROcodone-acetam inophen (NORCO) 5-325 mg per tabletIndications: Pain Take 1 tablet by mouth every 8 (eight) hours as needed for pain Must last 30 days 12 tablet 10/12/20 22 Active ALPRAZolam (XANAX) 0.5 mg tabletIndications: Generalized anxiety disorder Take 1 tablet (0.5 mg total) by mouth daily as needed for anxiety for up to 7 days 7 tablet 10/12/20 22 Active traZODone (DESYREL) 100 mg tabletIndications: Insomnia due to medical condition Take 1 tablet (100 mg total) by mouth nightly 30 tablet 3 12/24/19 23 Active Active Problems Problem Noted Date Diagnosed Date Acute hypokalemia 10/04/2022 History of ETOH abuse 06/18/2022 Assessment & Plan (06/18/2022 1:31 PM CDT): Order thiamine level Hepatic steatosis 05/03/2022 Assessment & Plan (05/03/2022 11:45 AM CDT): chornic Order cmp Hyperuricemia 04/21/2022 History of bacterial meningitis 10/28/2021 Intractable seizure disorder 10/28/2021 Muscle weakness of lower extremity 10/28/2021 Proteinuria 10/28/2021 Chronic midline thoracic back pain 10/28/2021 Assessment & Plan (08/18/2022 4:25 PM CDT): Chronic Continue norco. Assessment & Plan (05/03/2022 11:50 AM CDT): Chronic conditon Persistent with exacerbations Refill parafon Assessment & Plan (10/28/2021 11:58 AM CHANGE CONTROL SPECIALIST): Chronic conditon Persistent and intermittent flare Refill vicodin at fill date Thrombocytopenia 08/26/2021 Abdominal pain 08/24/2021 Left wrist pain 01/07/2021 Neuropathy involving both lower extremities 10/17 Overview (11/04/2020): Severe sensory peripheral polyneuropathy, felt to be subacute to chronic based on history and supported by electrodiagnostics. Assessment & Plan (08/24/2021 2:25 AM CHANGE CONTROL SPECIALIST): Subacute sensory neuropathy with EMG findings notable for absent SNAPs consistent with severe sensory peripheral polyneuropathy vs sensory ganglionopathy Frequent falls 11/04/2020 Peripheral polyneuropathy 11/04/2020 Overview (11/04/2020): More specifically, severe sensory polyneuropathy evidenced by absent SNAPs at Bilateral median, ulnar and radial, and right sural SNAP. No significant large fiber motor nerve involvement captured. Assessment & Plan (07/29/2021 11:55 AM CDT): Chronic condition Stable but persistent. Continue with gabapentin Assessment & Plan (04/23/2021 1:48 PM CDT): Chronic condition uncontrolled Start lidocaine topical to right foot. Assessment & Plan (01/21/2021 3:08 PM CDT): Chronic condition Persistent and currently seeing p.t. 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 Continue with p.t. Hyperosmolar hyponatremia 10/08/2020 Major depressive disorder, recurrent, unspecifie d 10/08/2020 Assessment & Plan (10/28/2021 11:57 AM CHANGE CONTROL SPECIALIST): Chronic condition Controlled with zoloft Moderate persistent asthma, uncomplicated 2019 History of closed head injury 04/24/2020 Hemiparesis of left nondomin ant side due to non-cerebrovascular etiology 04/24/2020 Assessment & Plan (08/18/2022 4:22 PM CDT): Chronic D/c parafon forte Wean down to once daily foir 2 weeks then d/c Assessment & Plan (04/24/2020 5:50 PM CDT): See above High risk medication use 04/03/2020 Social phobia 08/14/2019 Obese 01/08/2019 Folate deficiency anemia, unspecified 12/28/2018 Assessment & Plan (04/03/2020 3:27 PM CDT): Order folate Hypercholesterolemia 12/26/2017 Assessment & Plan (05/03/2022 11:46 AM CDT): Chronic Continue with atorvastatin Order lipid panel Assessment & Plan (07/29/2021 11:56 AM CDT): Chronic conditno Stable on statin therapy Assessment & Plan (04/03/2020 3:28 PM CDT): Well controlled on current regimen, no rx changes needed. Continue lifestyle modifications Ataxic gait 12/21/2017 Overview (04/03/2020): Description: left side from meningitis 2012 GERD (gastroesophageal reflux disease) 8 Assessment & Plan (04/03/2020 3:27 PM CDT): Well controlled on current regimen, no rx changes needed. Continue lifestyle modifications Insomnia 12/21/2017 Assessment & Plan (05/03/2022 11:47 AM CDT): Chronic and well controlled Continue with trazodone Assessment & Plan (04/03/2020 3:28 PM CDT): Well controlled on current regimen, no rx changes needed. Continue lifestyle modifications OCD (obsessive compulsive disorder) 12/21/2017 Overview (04/03/2020): Description: Dr Chandler Assessment & Plan (04/24/2020 5:50 PM CDT): See above Nephrotic syndrome with foca l and segmental glomerular lesions 03/08/2017 Generalized anxiety disorder 08/11/2016 Assessment & Plan (08/18/2022 4:21 PM CDT): Chronic and not well controlled Continue with xanax prn. Assessment & Plan (05/03/2022 11:46 AM CDT): Chronic and well controlled Continue with xanax and zoloft Assessment & Plan (10/28/2021 11:50 AM CHANGE CONTROL SPECIALIST): Chronic conditon Stable and well controlled with xanax Continue current dosing Assessment & Plan (07/29/2021 11:54 AM CDT): Chronic condition stable Refill xanax. Assessment & Plan (04/24/2020 5:50 PM CDT): See above Assessment & Plan (04/03/2020 3:28 PM CDT): Well controlled on current regimen, no rx changes needed. Continue lifestyle modifications Epilepsy without status epilepticus, not intract able 07/16/2016 Assessment & Plan (07/29/2021 11:57 AM CDT): Chronic Reports no seizure since 2012 keppra level Assessment & Plan (04/23/2021 1:49 PM CDT): Chronic condition stable with no recent seizure acitivity. Continue keppra Assessment & Plan (04/24/2020 5:50 PM CDT): Patient is currently on disability as needed approval forms for his student loan payment foregiveness through disability. Will complete the forms he has brought to us today. Essential (primary) hypertension 07/16/2016 Assessment & Plan (08/13/2020 4:32 PM CDT): Well controlled on current regimen, no rx changes needed. Continue lifestyle modifications Assessment & Plan (04/03/2020 3:27 PM CDT): Well controlled on current regimen, no rx changes needed. Continue lifestyle modifications Stage 1 chronic kidney disease 07/16/2016 Meningitis, bacterial 03/19/2013 Sinus venosus defect 03/13/2013 Partial anomalous pulmonary venous connection Acute pancreatitis Colitis Immunizations Immunization Administration Dates Next Due DTP 10/05/1990, 7,1985,1985,0 1985 HiB 07/01/1987 Influenza, Trivalent, IM (MDV) 07/29/2016 Influenza, Unspecified 07/29/2021(Deferred: Aleksandra ent Refused) MMR 05/06/1992,09/24/1986 OPV 10/05/1990, 7,1985,1985,0 1985 Sars-CoV-2, Unspecified 12/09/2020,11/18/2020 Tdap 06/08/2022 Surgical History Surgery Date Site/Laterality Comments ASD REPAIR Repair Of Congenital Atrial Septal Defect - (Added by TW Conv) [place] REPAIR ISOLATED PARTIAL P ULM VENOUS RETURN 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 - (Added by TW Conv) Medical History Medical History Date Comments Anxiety TBI (traumatic brain injury) ([facility]) 2012 Hyperlipidemia Mild intellectual disability Major depressive disorder Spondylosis without myelopathy or radiculopathy, lumbar region Frequent falls Sequela of inflammatory disease of central nervo us system Hypertension Urinary retention Family History Medical History Relation Name Comments No Known Problems Brother Coronary artery disease Father Fami ly history of coronary artery disease - (Added by TW Conv) Relation Name Status Comments Brother Alive Father Mother Alive Social History Tobacco Use Types Packs/Day Years Used Date Smoking Tobacco: Former Cigarettes Q uit: 04/03/2019 Smokeless Tobacco: Never Tobacco Cessation:Counseling Given: Not Answered Alcohol Use Standard Drinks/Week Comments Not Currently 0 (1 standard drink = 0.6 oz pur e alcohol) Humiliation, Afraid, Rape, and Kick questionnair e Answer Date Recorded Within the last year, have y ou been afraid of your partner or ex-partner? No 01/21/2022 Within the last year, have y ou been humiliated or emotionally abused in other ways by your partner or ex-partner? No Within the last year, have y ou been kicked, hit, slapped, or otherwise physically hurt by your partner or ex-partner? No 01/21/2022 Within the last year, have y ou been raped or forced to have any kind of sexual activity by your partner or ex-partner? No 01/21/2022 Social Connection and Isolation Panel Answer Date Recorded In a typical week, how many times do you talk on the phone with family, friends, or neighbors? More than three times a week 01/21/2022 How often do you get togethe r with friends or relatives? Three times a week 01/21/2022 How often do you attend chur ch or yazidism services? Never 01/21/2022 Do you belong to any clubs o r organizations such as synagogue groups, unions, fraternal or athletic groups, or school groups? Yes 01/21/2022 How often do you attend meet ings of the clubs or organizations you belong to? Never 01/21/2022 Are you , , di vorced, , never , or living with a partner? Never 01/21/2022 AUDIT-C Answer Date Recorded Q1: How often do you have a drink containing alc ohol? 2-4 times a month 08/18/2022 Q2: How many drinks containi ng alcohol do you have on a typical day when you are drinking? 1 or 2 08/18/2022 Q3: How often do you have si x or more drinks on one occasion? Never 08/18/2022 PHQ-2 Answer Date Recorded PHQ-2 Total Score (If total score is 3 or more points, staff should administer the PHQ-9) 0 01/21/2022 Exercise Vital Sign Answer Date Recorde d On average, how many days pe r week do you engage in moderate to strenuous exercise (like a brisk walk)? 3 days 01/21/2022 On average, how many minutes do you engage in exercise at this level? 30 min 01/21/2022 Sex and Gender Information Value Date Recorded Sex Assigned at Not on file Legal Sex Male 4:48 AM CHANGE CONTROL SPECIALIST Gender Identity Not on file Sexual Orientation Not on file Occupation Industry Job Start Date Job End Date Disability Not on file Not on file Not on file Last Filed Vital Signs Vital Sign Reading Time Taken Comments Blood Pressure 129/90 10/12/2022 7:38 PM CHANGE CONTROL SPECIALIST Pulse 113 10/12/2022 7:38 PM CHANGE CONTROL SPECIALIST Temperature 37.2 C (99 F) 10/12/2022 7:38 PM CHANGE CONTROL SPECIALIST Respiratory Rate 16 10/12/2022 7:38 PM CHANGE CONTROL SPECIALIST Oxygen Saturation 94% 10/12/2022 7:38 PM CHANGE CONTROL SPECIALIST Inhaled Oxygen Concentration - - Weight 119.4 kg (263 lb 3.2 oz) 10/05/2022 1:20 AM CHANGE CONTROL SPECIALIST Height 200.7 cm (6' 7) 10/05/2022 1:20 AM CHANGE CONTROL SPECIALIST Body Mass Index 29.65 10/05/2022 1:20 AM CHANGE CONTROL SPECIALIST Plan of Treatment Health Maintenance Due Date Last Done Comments Hepatitis B Screening 2003 Pneumococcal vaccine <65 (1 of 2 - PCV) 2004 HPV Vaccines (1 - 3-dose SCD M series) 2012 Depression Screening 01/21/2023 01/21/2022, 07/29/2021, 07/15/2020, Additional history exists Regular Well Visit/Exam 18-64 01/21/2023 01/21/2022, 07/15/2020 Influenza Vaccine (#1) 2025 07/29/2016 DTaP/Tdap/Td Vaccine (7 - Td or Tdap) 06/08/2032 06/08/2022, 10/05/1990, 01/23/1987, Additional history exists Hepatitis C Screening Completed 08/21/2022 , 03/09/2022, 10/27/2020, Additional history exists Varicella Vaccines Discontinued Procedures Procedure Name Priority Date/Time Associated Diagnosis Comments HEPATITIS PANEL, ACUTE Routine 08/21/2022 12:29 PM CDT Elevated LFTs from Last 3 Months or Most Recently Relevant to Health Maintenance Results * Hepatitis panel, acute (08/21/2022 12:29 PM CDT) Hep A IgM NON-REACTI VE NON-REACT DELLA [facility] Comment: For additional information, please refer to [email or web address]/faq/SEN719 (This link is being provided for informational/ educational purposes only.) HepBsAg NON-REACTI VE NON-REACT DELLA [facility] Hep B core IgM NON-REACTI VE NON-REACT DELLA [facility] Hep C Ab NON-REACTI VE NON-REACT DELLA [facility] SIGNAL TO CUT-OFF <0.02 <1.00 [facility] Comment: HCV antibody was non-reactive. There is no laboratory evidence of HCV infection. In most cases, no further action is required. However, if recent HCV exposure is suspected, a test for HCV RNA (test code 70819) is suggested. For additional information please refer to http://[employer]/faq/ZOQ33c8 (This link is being provided for informational/ educational purposes only.) Blood 08/21/2022 12:2 9 PM CDT 08/21/2022 12:31 PM CDT us [facility] MICROBIOLOGY - GENERAL ORDE REED Final Result [facility] [id number] [id number] from Last 3 Months or Most Recently Relevant to Health Maintenance Additional Health Concerns Infection Onset Date Last Indicated MDR gram neg/ESBL 10/25/2020 10/25/2020 Insurance [facility] MEDICARE ADVANTAGE [facility] MEDICARE ADVANTAGE IDPA [facility] Address: [address] [address] [place] [address] [employer] MEDICARE ADVANTAGE [facility] Address: [address] [address] [place] [address] Advance Directives For more information, please contact: [phone] Documents on File Type Date Recorded Patient Banking And Finance Instructor Expl anation ADVANCE DIRECTIVE 10/08/2022 9:29 AM Kwabena shelton of [employer] * Full Code (Latest Code Status on File) Date Activated Date Inactivated Comments 10/04/2022 9:17 PM 10/13/2022 4:29 AM * Full Code Date Activated Date Inactivated Comments 08/24/2021 3:49 AM 08/28/2021 9:48 PM * Full Code Date Activated Date Inactivated Comments 10/26/2020 4:35 PM 11/01/2020 8:57 PM
--- OUTSIDE RECORDS SUMMARY | 2025-09-30 22:13 | XMS_ITS | Patient Health Record ---
Author Organization [facility] Address [address] [place], [place] [address] Care Team Providers Care Garment Liner Name Role Phone MAYANK VOSS Unavailable [phone] Domenico Davenport Unavailable Unavailable Reason For Referral No Information Social History Social History Additional Details Category Social Info Options Details Migrated Social History Migrated Social History Smoking Status : Current every day smoker , History of tobacco use : Current every day smoker Plan Of Treatment No Information Insurance Providers Payer Name Payer Address Payer Phone Subscriber Number Group Number Insured Name Patient Relationship to Insured Coverage Start Date Coverage End Date [facility] ([facility] ATTN CLAIMS [address] [place] [address] [id number] FRED KIDD Self - patient is the insured
[2025-09-30 22:46] LABS: Add Urine Microscopic? YES; Appearance Urine Clear (Clear); Glucose Urine UA Negative (Negative); Leukocyte Esterase Ur Negative LEU/UL (Negative); Nitrate Urine Negative (Negative); Specific Grav Ur 1.013 (1.001-1.035)
[2025-09-30 23:04] LABS: Cannabinoid Screen Urine Negative (Negative)
--- NOTE | 2025-09-30 23:14 | PC.NURSE ---
The RN contacted pt's brother Patrick for transport back to [place].
[2025-09-30 23:49] VITALS: BP 113/74; PULSE 64; RESP 14; O2SAT 95
== END 2025-09-30 23:41 | disposition home or self-care (01) ==
PROVIDERS: Emergency Provider Student in an Organized Health Care Education/Training Program; PCP Surgery
DX: R55 Syncope and collapse (principal); E86.0 Dehydration; N17.9 Acute kidney failure, unspecified; R00.1 Bradycardia, unspecified; I10 Essential (primary) hypertension; K21.9 Gastro-esophageal reflux disease without esophagitis; E78.5 Hyperlipidemia, unspecified; G89.29 Other chronic pain; F41.9 Anxiety disorder, unspecified; G40.909 Epilepsy, unspecified, not intractable, without status epilepticus
CPT/HCPCS: 36415; 71045; 80053; 80307; 81001; 83605; 85025; 93005; 96360; 99283; J7120